=== PATIENT | male | born 1955 | race Caucasian/White ===

== ENCOUNTER → 2024-04-20 18:36 | Outpatient (REF) | payer OTHER, SELFPAY | LOC: MRI 3T 18:36 | PROVIDERS: ATTENDING PHYSICIAN Urology; FAMILY PHYSICIAN Family Medicine | DX: R97.20 Elevated prostate specific antigen [PSA] (principal); N40.2 Nodular prostate without lower urinary tract symptoms | CPT/HCPCS: 72197; A9575 ==

== ENCOUNTER 2024-09-13 07:18 | Outpatient (RCR) | payer OTHER, SELFPAY | END 2024-09-13 23:59 | disposition home or self-care (01) | LOC: RPT 07:18 | PROVIDERS: ATTENDING PHYSICIAN Urology; FAMILY PHYSICIAN Family Medicine | DX: C61 Malignant neoplasm of prostate (principal); Z73.6 Limitation of activities due to disability; M54.50 Low back pain, unspecified; R35.0 Frequency of micturition; R39.15 Urgency of urination | CPT/HCPCS: 97161; 97530 ==

== ENCOUNTER → 2024-10-04 07:05 | Outpatient (REF) | payer OTHER, SELFPAY ==
[2024-10-04] MEDS: LEXISCAN 0.4 MG IV (09:17)
== END ==
LOC: RCS 07:05
PROVIDERS: ATTENDING PHYSICIAN Internal Medicine Cardiovascular Disease; FAMILY PHYSICIAN Family Medicine
DX: Z01.810 Encounter for preprocedural cardiovascular examination (principal); I10 Essential (primary) hypertension; I44.7 Left bundle-branch block, unspecified
CPT/HCPCS: 78452; 93017; A9500; J2785

== ENCOUNTER 2024-10-07 06:44 | Day surgery (SDC) | payer OTHER, SELFPAY ==
[2024-09-27 14:17] VITALS: BMI 21.4
[2024-09-27 14:45] LABS: Mean Corp Hgb Conc. 33.3 g/dL (33.0-37.0); Mean Corpuscular Hgb 32.5 pg (27.0-31.0); Mean Corpuscular Volume 97.4 fL (80.0-94.0); Mean Platelet Volume 10.3 fL (7.4-10.4); Platelet Count 237 10^3/uL (130-400); Red Blood Cell Count 4.31 10^6/uL (4.70-6.10); White Blood Cell Count 7.8 10^3/uL (4.8-10.8)
[2024-09-27 14:55] LABS: Blood Urea Nitrogen 17 mg/dl (9-20); Calcium 9.3 mg/dl (8.4-10.2); Carbon Dioxide 31 mmol/L (22-30); Chloride 101 mmol/L (98-107); Estimated Creatinine Clearance 95 ml/min; Glucose 95 mg/dl (70-99); Potassium 4.8 mmol/L (3.5-5.1); Sodium 140 mmol/L (135-145); eGFR > 60.00
--- NOTE | 2024-09-27 15:07 | PTCARENOTE ---
Abn ECG, Dr. Murry notified. Cardiac clearance requested. Lorrie at Dr. Grande's office made aware of request for Cardiac Clearance.
[2024-10-07] VITALS (11 sets, daily range): BP systolic 127–148; BP diastolic 69–93; BMI 21.4; BMI 22.0
[2024-10-07] MEDS: NORMOSOL-R/PLASMALYTE-A 1000 IV (11:52)
[2024-10-07 17:56] LABS: Hematocrit 36.1 % (39.0-52.0); Hemoglobin 12.4 g/dL (13.0-18.0)
[2024-10-07] MEDS: TORADOL 15 MG IV ×2 (18:09→22:55)
[2024-10-07 18:11] LABS: Blood Urea Nitrogen 9 mg/dl (9-20); Calcium 7.9 mg/dl (8.4-10.2); Carbon Dioxide 22 mmol/L (22-30); Chloride 107 mmol/L (98-107); Estimated Creatinine Clearance 111 ml/min; Glucose 108 mg/dl (70-99); Potassium 4.3 mmol/L (3.5-5.1); Sodium 136 mmol/L (135-145); eGFR > 60.00
[2024-10-07] MEDS: LOVENOX 40 MG SC (18:14)
--- NOTE | 2024-10-07 18:53 | W.IMMPOSTOP ---
Surgical Immed Post Op Note
-
Primary Surgeon: Dimasfer
Assisting Surgeon: none
Pre-op Diagnosis: Prostate cancer
Post-op Diagnosis: same
Procedure Performed: Robotic prostatectomy
Anesthesia Type: general
Specimen / Cultures: prostate, lymph nodes
Estimated Blood Loss: 50cc
Complications: none
Operative Findings: none
--- NOTE | 2024-10-07 19:55 | PTCARENOTE ---
Pt arrive to [facility] at 1915 from PACU. Pt has 6 lap sites COLEEN with glue and a Rosenberg. Report received from RN, Teresa. Pt oriented to room and call pinedo. Bed locked and in lowest position. Full head to toe complete.
[2024-10-07] MEDS: NSS 1000 IV (20:54)
[2024-10-07] MEDS: SENOKOT 17.2 MG PO (20:54)
[2024-10-08] MEDS: PERCOCET 5/325 1 TABLET PO (02:37)
[2024-10-08 03:32] VITALS: BP 124/72
[2024-10-08] MEDS: TORADOL 15 MG IV ×3 (03:47→16:25)
[2024-10-08] MEDS: NSS 1000 IV (06:27)
[2024-10-08 08:00] VITALS: BP 113/67
[2024-10-08 08:12] LABS: Hematocrit 31.1 % (39.0-52.0); Hemoglobin 10.5 g/dL (13.0-18.0); Mean Corp Hgb Conc. 33.8 g/dL (33.0-37.0); Mean Corpuscular Hgb 32.6 pg (27.0-31.0); Mean Corpuscular Volume 96.6 fL (80.0-94.0); Mean Platelet Volume 10.7 fL (7.4-10.4); Platelet Count 184 10^3/uL (130-400); Red Blood Cell Count 3.22 10^6/uL (4.70-6.10); Red Cell Dist. Width 13.5 % (11.5-14.5); White Blood Cell Count 8.6 10^3/uL (4.8-10.8)
[2024-10-08 08:45] LABS: Blood Urea Nitrogen 14 mg/dl (9-20); Calcium 7.6 mg/dl (8.4-10.2); Carbon Dioxide 26 mmol/L (22-30); Chloride 107 mmol/L (98-107); Estimated Creatinine Clearance 95 ml/min; Glucose 87 mg/dl (70-99); Potassium 4.1 mmol/L (3.5-5.1); Sodium 137 mmol/L (135-145); eGFR > 60.00
[2024-10-08] MEDS: TENORMIN 50 MG PO (08:54)
[2024-10-08] MEDS: SENOKOT 17.2 MG PO (08:55)
[2024-10-08] MEDS: ZESTRIL 20 MG PO (08:55)
[2024-10-08 09:29] LABS: Hepatitis C Antibody Reactive (Negative)
--- NOTE | 2024-10-08 10:45 | CM ---
Met with pt at bedside
Pt reports he lives in an apartment with his nephew; 4 steps to enter, FF set-up
Independent, active, drives
DME - none
SNF/HH - denies past hx
Has ride at discharge
PCP - Maximo Bach
Pharm - [facility]
CM consult for VN/Rosenberg care
Discussed with pt - no preference
TT sent to [facility] Liaison for home care needs
Plan - home with [facility]
--- NOTE | 2024-10-08 11:15 | VNURNOTE ---
Home Health Liaison met with patient at bedside to discuss [facility] nurse/therapy, visits, schedule and homebound status. Patient is agreeable and understands that visits at home will be 2-3 x per week to assess and teach medical and carlin management.
[facility] brochure provided with contact information. Patient is aware that [facility] will contact them for start of care in 1-2 days after discharge from .
[facility] referral completed in [facility].
--- NOTE | 2024-10-08 11:26 | W.PN.URO.CBU ---
Today's Communication / Plan
-
H&H
Likely discharge
Assessment / Plan
-
69M with prostate cancer s/p RALP/PLND
- Mild anemia due to INF dilution vs post surgical bleeding - repeat H&H this afternoon
- Reg diet
- Ambulate
- Discharge this afternoon with carlin in place if HGB stable
Diagnosis
-
Date of Service: October 08, 2024
-
Patient Diagnosis:
Prostate cancer
Post Op Day: 1 s/p RALP/PLND
Subjective
-
pain controlled
tolerating diet
ambulated
Objective
-
Vital Signs
Temp Pulse Resp BP Pulse Ox
98.0 F 59 16 113/67 96
10/08/24 08:00 10/08/24 08:00 10/08/24 08:00 10/08/24 08:54 10/08/24 08:00
Intake and Output
10/07/24 10/08/24 10/09/24
06:59 06:59 06:59
Intake Total 2030 / 2030
Output Total 750 / 750
Balance 1280 / 1280
Intake:
Oral fluids 480 / 480
IV fluids (Total) 1550 / 1550
Normosal 300 / 300
IV piggybacks 0 / 0
Output:
Urine, Carlin 350 / 350
Urine, Voided 400 / 400
Laboratory Results
10/08/24 06:52
Physical Exam
-
General - well developed, well nourished, no acute distress
Chest - clear bilaterally
Abdomen - soft, non-tender
Carlin clear yellow
Skin - warm & dry with no rash
Neuro - AOx3, no motor deficits
Incision - clean, dry
Dressing - clean, dry, intact
[2024-10-08 12:12] VITALS: BP 109/58
[2024-10-08 14:31] LABS: Hematocrit 32.7 % (39.0-52.0); Hemoglobin 10.7 g/dL (13.0-18.0)
== END 2024-10-08 17:45 | disposition home or self-care (01) ==
LOC: SDS 06:44
PROVIDERS: ATTENDING PHYSICIAN Urology; FAMILY PHYSICIAN Family Medicine
DX: C61 Malignant neoplasm of prostate (principal); C77.5 Secondary and unspecified malignant neoplasm of intrapelvic lymph nodes
CPT/HCPCS: 55866; 38571; 88305; 88307; 88309; 36415; 80048; 85014; 85018; 85027; 86803; 86850; 86900; 86901; 93005

== ENCOUNTER 2024-11-19 10:57 | Outpatient (RCR) | payer OTHER, SELFPAY | END 2024-11-19 23:59 | disposition home or self-care (01) | LOC: RPT 10:57 | PROVIDERS: ATTENDING PHYSICIAN Urology; FAMILY PHYSICIAN Family Medicine | DX: C61 Malignant neoplasm of prostate (principal); Z73.6 Limitation of activities due to disability; M54.50 Low back pain, unspecified; Z98.890 Other specified postprocedural states; R35.0 Frequency of micturition; R39.15 Urgency of urination; Z90.79 Acquired absence of other genital organ(s) | CPT/HCPCS: 97164; 97530 ==

== ENCOUNTER 2024-12-24 11:04 | Outpatient (RCR) | payer OTHER, SELFPAY | END 2024-12-24 23:59 | disposition home or self-care (01) | LOC: RPT 11:04 | PROVIDERS: ATTENDING PHYSICIAN Urology; FAMILY PHYSICIAN Family Medicine | DX: C61 Malignant neoplasm of prostate (principal); Z73.6 Limitation of activities due to disability; M54.50 Low back pain, unspecified; M62.89 Other specified disorders of muscle; Z98.890 Other specified postprocedural states; M62.81 Muscle weakness (generalized); Z90.79 Acquired absence of other genital organ(s); R35.0 Frequency of micturition; R39.15 Urgency of urination | CPT/HCPCS: 97110; 97112 ==

== ENCOUNTER 2025-01-14 11:11 | Outpatient (RCR) | payer OTHER, SELFPAY | END 2025-01-14 23:59 | disposition home or self-care (01) | LOC: RPT 11:11 | PROVIDERS: ATTENDING PHYSICIAN Urology; FAMILY PHYSICIAN Family Medicine | DX: C61 Malignant neoplasm of prostate (principal); Z73.6 Limitation of activities due to disability; M54.50 Low back pain, unspecified; M62.89 Other specified disorders of muscle; M62.81 Muscle weakness (generalized); R35.0 Frequency of micturition; Z98.890 Other specified postprocedural states; Z90.79 Acquired absence of other genital organ(s); R39.15 Urgency of urination | CPT/HCPCS: 97110; 97112; 97530 ==

== ENCOUNTER 2025-02-11 11:09 | Outpatient (RCR) | payer OTHER, SELFPAY | END 2025-02-11 23:59 | disposition home or self-care (01) | LOC: RPT 11:09 | PROVIDERS: ATTENDING PHYSICIAN Urology; FAMILY PHYSICIAN Family Medicine | DX: C61 Malignant neoplasm of prostate (principal); Z73.6 Limitation of activities due to disability; M54.50 Low back pain, unspecified; M62.89 Other specified disorders of muscle; M62.81 Muscle weakness (generalized); Z90.79 Acquired absence of other genital organ(s); Z98.890 Other specified postprocedural states; R35.0 Frequency of micturition; R39.15 Urgency of urination | CPT/HCPCS: 97110; 97112 ==

== ENCOUNTER 2025-03-11 12:55 | Outpatient (RCR) | payer OTHER, SELFPAY | END 2025-03-11 23:59 | disposition home or self-care (01) | LOC: RPT 12:55 | PROVIDERS: ATTENDING PHYSICIAN Urology; FAMILY PHYSICIAN Family Medicine | DX: C61 Malignant neoplasm of prostate (principal); Z73.6 Limitation of activities due to disability; M54.50 Low back pain, unspecified; M62.89 Other specified disorders of muscle; M62.81 Muscle weakness (generalized); Z98.890 Other specified postprocedural states; R35.0 Frequency of micturition; Z90.79 Acquired absence of other genital organ(s); R39.15 Urgency of urination | CPT/HCPCS: 97110; 97112 ==

== ENCOUNTER 2025-04-22 10:00 | Outpatient (RCR) | payer OTHER, SELFPAY | END 2025-04-22 23:59 | disposition home or self-care (01) | LOC: RPT 10:00 | PROVIDERS: ATTENDING PHYSICIAN Urology; FAMILY PHYSICIAN Family Medicine | DX: C61 Malignant neoplasm of prostate (principal); Z73.6 Limitation of activities due to disability; M54.50 Low back pain, unspecified; M62.89 Other specified disorders of muscle; M62.81 Muscle weakness (generalized); R35.0 Frequency of micturition; R39.15 Urgency of urination; Z90.79 Acquired absence of other genital organ(s); Z98.890 Other specified postprocedural states | CPT/HCPCS: 97110; 97112; 97530 ==

== ENCOUNTER → 2025-05-20 16:39 | Outpatient (REF) | payer OTHER, MEDICAID, SELFPAY | LOC: MRI 3T 16:39 | PROVIDERS: ATTENDING PHYSICIAN Radiology Radiation Oncology; FAMILY PHYSICIAN Family Medicine | DX: R97.20 Elevated prostate specific antigen [PSA] (principal); C61 Malignant neoplasm of prostate | CPT/HCPCS: 72197; A9575 ==

== ENCOUNTER 2025-07-21 18:12 | Inpatient (IN) | payer OTHER, SELFPAY ==
[2025-07-21] VITALS (55 sets, daily range): BP systolic 83–157; BP diastolic 45–83; PULSE 38–46; BMI 21.3; BMI 20.2
--- NOTE | 2025-07-21 13:49 | ED.GENMED ---
History of Present Illness
General
Chief Complaint: Weakness
Time Seen by Provider: 07/21/25 13:40
History of Present Illness
History of Present Illness:
Patient presents to the emergency department with altered mental status. The history is not entirely clear however patient was noted to be weak today generally. Patient is falling asleep while he is talking and is able to provide some limited
history. He denies any pain at this time. States he is feeling okay.
Phy Exam
Physical Exam
Physical Exam:
GENERAL APPEARANCE: Cute distress, patient with poor attention, tired appearing, falling asleep during interview
EYES lids/conjunctiva normal, pupils midsize and equal, reactive to light and accommodation
EARS/NOSE/THROAT Mucous membranes moist, uvula midline without oral pharyngeal erythema, exudate or swelling
HEAD/NECK normocephalic atraumatic, neck is supple.
RESPIRATORY respiratory effort normal, speaks in full sentences, no accessory muscle use. Lungs clear to auscultation without rhonchi, wheezes, rales
CARDIAC Regular rate and rhythm, no edema.
ABDOMINAL Soft, ND/NT. No pulsatile masses on exam, rebound tenderness, Herring sign or pain over Mcburney's point.
MUSCLES/EXTREMITIES No abnormal range of motion, no swelling.
SKIN Warm, pink and dry. No rashes
NEUROLOGICAL patient is oriented x 3, speech is clear and appropriate. Decreased level of consciousness. Poor attention. Cranial nerves II through XII intact. No dysmetria. No nystagmus. Sensation intact to light touch throughout. 02/28
strength in all extremities.
Course
Orders/Labs/Results
Orders:
Orders
07/21/25
Electrocardiogram (*1) Stat
Comment: DONE
Electrocardiogram (*1) Stat
Comment: DONE EMR
07/21/25 13:47
CT Head W/o Iv Contrast Urgent
Comment:
Reason For Exam: altered mental status
07/21/25 13:48
CR Chest - 2 Views Urgent
Comment:
Reason For Exam: altered mental status
07/21/25 13:52
0.9% Sodium Chloride 1000 ml [Nss] 1,000 ml IV BOLUS
07/21/25 14:02
Alcohol Urgent
Basic Metabolic Panel Urgent
Complete Blood Count/With Diff Urgent
Free T4 Urgent
Comment: ADD ON
Lactate Level [Lactic Acid] Urgent
TSH Urgent
Comment: ADD ON
Troponin I Urgent
Venous Blood Gas Urgent
%Oxygen/Room Air: room air
07/21/25 14:20
Blood Culture Q30M
BLANCA Source: Blood/Venous
Specimen Description:
07/21/25 14:21
Naloxone [Narcan] 0.4 mg IV NOW STA
07/21/25 14:22
Naloxone [Narcan] 0.4 mg .ROUTE .STK-MED ONE
07/21/25 14:29
Add On- LAB Urgent
Tests Added?: TSH
Add On- LAB Urgent
Tests Added?: tsh, free t4
07/21/25 14:30
Blood Culture Q30M
BLANCA Source: Blood/Venous
Specimen Description:
07/21/25 15:06
Atropine Sulfate [Atropine 0.1 mg/ml Syringe] 1 mg .ROUTE .STK-MED ONE
07/21/25 15:07
Atropine Sulfate [Atropine 0.1 mg/ml Syringe] 0.5 mg IV NOW STA
07/21/25 15:26
Urinalysis Reflex To Culture Urgent
Date Specimen was Collected: 07/21/25
Time Specimen was Collected: 15:18
Urine Drug Abuse Screen Urgent
Date Specimen was Collected: 07/21/25
Time Specimen was Collected: 15:18
Urine Microscopic Reflex Cult Urgent
07/21/25 15:29
0.9% Sodium Chloride 1000 ml [Nss] 1,000 ml IV BOLUS
07/21/25 15:54
NORepinephrine 4 MG/250 ML [Levophed] 4 mg in 250 ml .ROUTE .STK-MED
07/21/25 16:00
NORepinephrine 4 MG/250 ML [Levophed] 4 mg in 250 ml IV PER PROTOCOL
Initial dose in mcg/min, then titrate:: 2
Titrate to keep:: MAP > 65 mmHg
Titrate by mcg/min:: 1-2 mcg/min
Frequency of titrations (minutes):: 5
Maximum dose in ICU in mcg/min:: 30
Maximum dose in IMU in mcg/min:: 8
Maximum dose in IVU in mcg/min:: 4
Begin to taper infusion when:: Remained at goal for 4hrs
Taper by mcg/min:: 1-2 mcg/min
Frequency of taper (minutes) if patient maintains goal:: 30
Taper to off?: Yes
If infusion off & no longer maintaining goal:: Contact Provider
07/21/25 16:09
Atropine Sulfate [Atropine 0.1 mg/ml Syringe] 0.5 mg IV NOW STA
07/21/25 16:58
COVID-19 Antigen Urgent
Source: Nasal Swab
07/21/25 17:43
Procalcitonin Urgent
If negative, will antibiotics be d/c'd or not started: Yes
Does the patient have renal or hepatic impairment?: No
Any recent (w/in 48 hrs) physiologic stress (CPR, rhabdo): No
07/21/25 17:45
DOPamine 400 MG/D5W 250 ML [DOPamine 400 MG] 400 mg in 250 ml IV PER PROTOCOL
Initial dose in mcg/kg/min, then titrate:: 2
Titrate to keep:: Heart Rate
Keep Heart Rate (bpm) greater than:: 50
Titrate by mcg/kg/min:: 1-2 mcg/kg/min
Frequency of titrations (minutes):: 15
Maximum dose in ICU in mcg/kg/min:: 20
Maximum dose in IMU in mcg/kg/min:: 10
Begin to taper infusion when:: Remained at goal for 4hrs
Taper by mcg/kg/min:: 1-2 mcg/kg/min
Frequency of taper (minutes) if patient maintains goal:: 30
Taper to off?: Yes
If infusion off & no longer maintaining goal:: Contact Provider
07/21/25 17:50
INR [Prothrombin Time] Urgent
Influenza A+B Rapid Molecular Urgent
BLANCA Source: Nasal Swab
Specimen Description:
07/21/25 17:54
Admit/Transfer Patient As Directed
Co-Sign Provider:
Level of Care: Inpatient admission
Assign to:: ICU
Physician / Group: Paulette Betancur
Diagnosis: bradycardia, hypotension, somnolence
Reason for Hospitalization: bradycardia, hypotension, somnolence
Expected length of stay greater than two midnights?: Yes
ELOS- Estimated Length of Stay in days: 3
I certify the patient meets the requirements for IP care: Yes
PRN Pain Medication Management As Directed
May give lesser potent ordered pain med per pt: Yes
preference::
Protocol:: Medication orders for pain may be administered in a
manner that supports deferring to patient preference
when the pt is:
- Requesting an ordered lesser potent pain medication.
Least to most potent pain medications are defined
as: acetaminophen < NSAID < tramadol < opioids
(morphine, oxycodone, hydromorphone).
- Requesting a lesser dose of the same medication IF
ORDERED.
- Requesting a less intrusive route of administration
if both routes are prescribed by the provider (PO <
IV).
07/21/25 17:55
Code Status As Directed
Resuscitation Status: Full Code
07/21/25 18:08
Add On- LAB Routine
Tests Added?: vitamin B12
07/21/25 18:15
Thiamine Injection 500 mg 0.9% Sodium Chloride 250 ml [Nss] 250 ml IV Q8
Abnormal Lab Results
07/21/25 07/21/25
14:02 15:26
RBC 3.34 L 10^6/uL
(4.70-6.10)
Hgb 10.4 L g/dL
(13.0-18.0)
Hct 30.7 L %
(39.0-52.0)
MCH 31.1 H pg
(27.0-31.0)
Abs Immat Gran (auto) 0.1 H 10^3/uL
(0-0.05)
Absolute Neuts (auto) 6.8 H 10^3/uL
(1.4-6.5)
Absolute Lymphs (auto) 0.6 L 10^3/uL
(1.2-3.4)
Absolute Monos (auto) 0.7 H 10^3/uL
(0.1-0.6)
Immature Gran % 1.0 H %
(0-0.5)
Neutrophils % 83.3 H %
(42.2-75.2)
Lymphocytes % 7.1 L %
(20.5-51.1)
VBG pO2 200 H mmHg
(30-50)
BUN 21 H mg/dl
(9-20)
Creatinine 0.6 L mg/dL
(0.7-1.3)
Glucose 128 H mg/dl
(70-99)
Urine Albumin (Reflex) 1+ A
(Neg - Trace)
U Marijuana (THC) Screen Positive H
(Negative)
07/21/25 14:02
07/21/25 14:02
Vital Signs
Initial and Last Documented VS:
Initial Vital Signs
Temp Pulse Resp BP Pulse Ox
98.9 F 54 28 126/69 97
07/21/25 13:33 07/21/25 13:33 07/21/25 13:33 07/21/25 13:33 07/21/25 13:33
Last Documented Vital Signs
Temp Pulse Resp BP Pulse Ox
98.9 F 50 14 109/56 97
07/21/25 13:33 07/21/25 18:15 07/21/25 18:15 07/21/25 18:15 07/21/25 18:04
*Pulse Oximetry
SaO2: 96
Oxygen Mode of Delivery: Room air
Patient hypoxic: no
*Critical Care Note
Total Time (30-74mins, 75-104mins- exclusive of procedures): 35 minutes
comment:
35 minutes
ED Attending Note
ED Attending Note
ED Attending Note:
Patient's sister (roommate), and nephew arrived to the emergency department. They note that he does take various herbal supplements and [id number] drugs from head shops.
Patient presents with depressed mental status, sinus bradycardia, hypotension. Non focal neurologic exam to suggest CVA. EKG with chronic LBBB with bradycardia into the 30s-40s. Patient is arousable and oriented. Denies any symptoms other than
fatigue, but continues to fall asleep. Differential broad including primary cardiac vs endocrine vs tox. Given narcan without response. Given atropine with mild response. BP not responsive to IVF. Starting norepinephrine given low MAP.
-
Portions of this chart may have been created with voice recognition software.� Occasional wrong word or��sound alike� substitutions may have occurred due to the inherent limitations of voice recognition software.
Discharge Plan
Departure
Patient Disposition: Admit
Date of Disposition: 07/21/25
Time of Disposition: 16:08
Presentation/result/management discussed w/ accepting MD/DO: Hospitalist
Discharge Problem:
Shock, Bradycardia, severe sinus
Interventions
Interventions:
*General Assessment Last Done: 07/21/25 13:43
*Neglect/Abuse Screening Last Done: 07/21/25 13:43
*ED- Fall Risk Assessment Last Done: 07/21/25 13:43
ED- Cardiac Assessment Last Done: 07/21/25 13:38
ED- Neurological Assessment Last Done: 07/21/25 13:38
ED- Pulmonary Assessment Last Done: 07/21/25 13:38
[2025-07-21] MEDS: NSS 1000 IV ×3 (13:50→18:46)
[2025-07-21 14:18] LABS: Venous Blood Gas B.E. 0 mmol/L (-4 to +4); Venous Blood Gas O2 Sat % 99.7 %
[2025-07-21] MEDS: NARCAN 0.4 MG IV (14:25)
[2025-07-21 14:28] LABS: Hematocrit 30.7 % (39.0-52.0); Hemoglobin 10.4 g/dL (13.0-18.0); Mean Corp Hgb Conc. 33.9 g/dL (33.0-37.0); Mean Corpuscular Volume 91.9 fL (80.0-94.0); Nucleated Red Blood Cells % 0 % (-); Platelet Count 325 10^3/uL (130-400); Red Cell Dist. Width 13.3 % (11.5-14.5)
[2025-07-21 14:31] LABS: Blood Urea Nitrogen 21 mg/dl (9-20); Calcium 8.7 mg/dl (8.4-10.2); Carbon Dioxide 25 mmol/L (22-30); Chloride 106 mmol/L (98-107); Estimated Creatinine Clearance 106 ml/min; Glucose 128 mg/dl (70-99); Potassium 4.5 mmol/L (3.5-5.1); Sodium 135 mmol/L (135-145); eGFR > 60.00
[2025-07-21 14:43] LABS: Troponin I < 0.012 ng/ml
[2025-07-21] MEDS: ATROPINE 0.1 MG/ML SYRINGE 0.5 MG IV ×2 (15:07→16:11)
[2025-07-21 15:33] LABS: TSH 0.63 uIU/ml (0.47-4.68)
[2025-07-21 15:41] LABS: Urine Character Clear (Clear)
[2025-07-21] MEDS: LEVOPHED 250 IV (15:57)
--- NOTE | 2025-07-21 16:24 | CON.CAR ---
Addendum entered and electronically signed by Frankie Chester MD 07/21/25 17:35:
I saw and examined the patient.
The Charge Aide's note was reviewed and I agree with the note.
Comment: Briefly, 70-year-old man with past medical history of prostate cancer status post prostatectomy on radiation, chronic left bundle branch block and hypertension who was brought in to ER for evaluation of altered mental status. Cardiology
is consulted for bradycardia and hypotension.
History was largely obtained by his sister who was at bedside
She tells me that she found the patient 'passed out on the steps' of their home. Patient was reportedly 'incoherent' and 'stumbling.'
He was brought in to ER where he was found to be in sinus bradycardia with heart rates in the 30s and 40s and hypotensive. He was treated with atropine with some improvement in the heart rate but he remained hypotensive and Levophed was started.
Lethargic/somnolent at the time of my evaluation. But warm and well-perfused on physical exam.
Possible that his presentation is related to an underlying infection which has not yet been identified or ingestion as sister tells me he takes many supplements and OTC medications
My review of telemetry shows no significant pauses or high-grade AV block and therefore I do not see a clear indication for permanent pacemaker at this time
Would continue Levophed to target a MAP goal greater than 65 mmHg
Avoid AV lexi blockers�patient is on atenolol as an outpatient
Continue to monitor on telemetry and keep transcutaneous pacemaker pads in place
Discussed with patient's sister and nursing at bedside
Original Note:
Consultation
Consultation Request
Date/Time Consultation Performed: 07/21/25
Requesting Provider: Dr. Saab in the ER
Performing Provider: Cassidy Billings PA-C for Dr. Chester
Reason for Consultation: bradycardia, hypotension
Medical History
-
Chief Complaint: altered mental status
History of Present Illness:
Patient is a 70 yo M with PMH of chronic LBBB, HTN, prostate cancer s/p radical prostatectomy who presented to [facility] ER due to change in mental status. Noted to be weak and lethargic. Was bradycardic and hypotensive in ER resulting in cardiology
consultation. Trop negative. Head CT without acute abnormality. Patient's family sitting at the bedside and reports that following successful prostatectomy patient had an increase in his PSA level leading to the initiation of radiation therapy.
Radiation therapy has been Friday through Friday for the last 2 weeks and the patient has been more fatigued, but then the last 2 days the patient was so tired that he did not eat with his family like usual after coming home from work. 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 He is usually not done work until 1030 or 11:00 at night, but will still come home and eat a meal with his sister and then wake up in the morning time, but last night he did not want to eat with
family and today he was not up by noon time so the family checked on him and they could not wake him up although he appeared to be breathing on his own. Family called 911 and patient was brought to [facility] ER. Family reports the patient drinks a 12
pack a day and then also has shots of hard liquor. They do not suspect any illicit drug use. They report patient has lost weight. They said that overall the patient is generally fairly private and so they do not know much about his medical care
aside from the recent radiation therapy. Patient is chronically on atenolol 50 mg daily, but he manages all of his medications on his own. Family thinks that the patient had an MS treated at [facility] perhaps 20 years ago, but they
do not have any further details and patient completed Lexiscan nuclear stress test prior to his prostatectomy in September and at that time there is a medium size defect of decreased perfusion in the inferior/inferoseptal segment that was mildly
reversible but then normalized on prone imaging suggesting inferior soft tissue attenuation. The patient has not complained of any chest pain, SOB or palpitations recently.
PMH:
History of HTN
chronic LBBB
Prostate cancer s/p radical prostatectomy 2023
Possible remote MS in 2004
Past Medical History
Past Medical History: Other (in HPI)
Past Surgical History: Urological (Radical prostatectomy 09/2024)
Social History
Tobacco: Non-Smoker
Alcohol: Chronic Alcoholic (12 beers a day plus shots of hard liquor)
Drug: Marijuana
Personal: Single
Living: With Family
Employment: Retired
Family History
Family History: CAD, Cancer (prostate) and Hypertension
Allergies / Home Medications
Allergy/AdvReac Type Severity Reaction Status Date / Time
No Known Allergies Allergy Unverified 10/07/24 11:13
�Medication �Instructions �Recorded �Confirmed �Type
atenolol 50 mg tablet 50 mg PO DAILY 10/06/24 07/21/25 History
cholecalciferol (vitamin D3) 25 25 mcg PO DAILY ##0 10/06/24 07/21/25 History
mcg (1,000 unit) tablet (Vitamin
D3)
garlic 300 mg capsule 300 mg PO DAILY ##0 10/06/24 07/21/25 History
lisinopril 20 mg tablet 20 mg PO DAILY 10/06/24 07/21/25 History
vitamin E 268 mg (400 unit) capsule 268 mg PO DAILY ##0 10/06/24 07/21/25 History
mirabegron 25 mg tablet,extended 25 mg PO DAILY 07/21/25 07/21/25 History
release 24 hr (Myrbetriq)
Review of Systems
-
History Source: Patient and Family (Sister and nephew contributing to HPI)
All other systems: Negative unless noted
Physical Exam
Vital Signs
Temp Pulse Resp BP Pulse Ox
98.9 F 66 17 140/75 78
07/21/25 13:33 07/21/25 16:20 07/21/25 16:20 07/21/25 16:20 07/21/25 16:20
GEN: NAD. Somnolent
HEENT: MMM
LUNGS: RA. Clear anterolaterally
CV: Sinus bradycardia. Reg, S1/S2, no murmur
ABD: soft, BS+
EXT: No edema B/L LE
NEURO: Gross non-focal
SKIN: No rash
Lab Results
07/21/25 14:02
07/21/25 14:02
Troponin I < 0.012 ng/ml 07/21/25 14:02
Impression / Plan
-
Primary Sketch Liner: Dr. Ac
Assessment:
Presentation with change in mental status
Hypotension
Sinus bradycardia
Anemia
History of HTN
chronic LBBB
Prostate cancer s/p radical prostatectomy 2023
Possible remote MS in 2004
ECHO 07/22/25: pending
Plan:
-Patient is a 70 yo M with PMH of chronic LBBB, HTN, prostate cancer s/p radical prostatectomy who presented to [facility] ER due to change in mental status. Noted to be weak and lethargic. Was bradycardic and hypotensive in ER resulting in cardiology
consultation. Trop negative. Head CT without acute abnormality. Patient's family sitting at the bedside and reports that following successful prostatectomy patient had an increase in his PSA level leading to the initiation of radiation therapy.
Radiation therapy has been Friday through Friday for the last 2 weeks and the patient has been more fatigued, but then the last 2 days the patient was so tired that he did not eat with his family like usual after coming home from work. 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 He is usually not done work until 1030 or 11:00 at night, but will still come home and eat a meal with his sister and then wake up in the morning time, but last night he did not want to eat with
family and today he was not up by noon time so the family checked on him and they could not wake him up although he appeared to be breathing on his own. Family called 911 and patient was brought to [facility] ER. Family reports the patient drinks a 12
pack a day and then also has shots of hard liquor. They do not suspect any illicit drug use. They report patient has lost weight. They said that overall the patient is generally fairly private and so they do not know much about his medical care
aside from the recent radiation therapy. Patient is chronically on atenolol 50 mg daily, but he manages all of his medications on his own. Family thinks that the patient had an MS treated at [facility] perhaps 20 years ago, but they
do not have any further details and patient completed Lexiscan nuclear stress test prior to his prostatectomy in September and at that time there is a medium size defect of decreased perfusion in the inferior/inferoseptal segment that was mildly
reversible but then normalized on prone imaging suggesting inferior soft tissue attenuation. The patient has not complained of any chest pain, SOB or palpitations recently.
-ECG reviewed by me is sinus bradycardia with occasional PAC and known LBBB.
-Patient with change in mental status, last seen well at about 11 PM on 07/20/2025. Workup thus far is unremarkable.
-Cardiology consulted for sinus bradycardia, patient was given a dose of atropine in the ER and is now on Levophed running at 1 mcg/min and BP has improved to 94/49 with a heart rate of 52.
-Plan will be for supportive care while underlying diagnosis is formulated. There is no indication for PPM.
-Agree with holding atenolol
-Agree with plan for echo. EF was preserved on stress test 10/04/2024.
Data Reviewed
-
EKG: Tracing Personally Visualized and interpreted
CT Scan: Report Reviewed by me
Medical Tests (Nuc Med, Echo etc): Report Reviewed by me
Labs: Labs Reviewed by me
Old Records: Reviewed
--- NOTE | 2025-07-21 16:31 | HPS.HSE ---
Addendum entered and electronically signed by Paulette Betancur MD 07/21/25 23:30:
with drinking history, high dose IV thiamine ordered
start MSAS protocol when patient more awake
Addendum entered and electronically signed by Paulette Betancur MD 07/21/25 18:17:
confirmed code status with nephew, full code
nephew states patient takes many different vitamins, and synthetic compounds which are legal but unregulated. HE denied knowing he takes THC.
Original Note:
Family Physician
-
Family Physician: NOT KNOW UNKNOWN - PT DOES
Chief Complaint
-
altered mental status
History of Present Illness
Mr. Keven Lopez is a 70 yo man with hx essential HTN, LBBB, prostate CA s/p prostatectomy undergoing radiation therapy, brought to the ER for weakness and drowsiness.
Patient unable to provide history and I tried calling family in chart, no answer. Patient was found passed out at home, unable to be woken up. He drinks a 12 pack a day and has shots of liquor. He smokes marijuana, no other known illicit drug
use. Per family, he takes many different supplements and herbs from headshops.
Medical History
Past Medical History
Past Medical History: Reports Other (essential HTN, LBBB, prostate CA)
Past Surgical History: Reports Other
Social History
Alcohol: Daily
Family History
Family History: Not pertinent
Allergies / Home Medications
Allergies reflects when Allergies were last updated in [facility].
Home Medications with original date entered in [facility]
Allergy/Medication List:
Allergies
Allergy/AdvReac Type Severity Reaction Status Date / Time
No Known Allergies Allergy Unverified 10/07/24 11:13
Home Medications
atenolol 50 mg tablet 50 mg PO DAILY 10/06/24
cholecalciferol (vitamin D3) 25 mcg (1,000 unit) tablet (Vitamin D3) 25 mcg PO DAILY ##0 12/11/24
garlic 300 mg capsule 300 mg PO DAILY ##0 10/06/24
lisinopril 20 mg tablet 20 mg PO DAILY 10/06/24
vitamin E 268 mg (400 unit) capsule 268 mg PO DAILY ##0 10/06/24
mirabegron 25 mg tablet,extended release 24 hr (Myrbetriq) 25 mg PO DAILY 07/21/25
Review of Systems
-
History Source: Patient
A 12 point ROS was completed and negative except as noted: Yes
Physical Exam
Vital Signs
Vital Signs
Temp Pulse Resp BP Pulse Ox
98.9 F 66 17 140/75 78
07/21/25 13:33 07/21/25 16:20 07/21/25 16:20 07/21/25 16:20 07/21/25 16:20
Physical Exam
General: Other (in no acute distress, lethargic, grimaces when try to open eye lids, mumbles words and does not stay awake )
HEENT: PERRLA
Respiratory: Clear; No Wheezes
Cardiac: S1/S2 and Regular Rhythm
GI: Soft and Non Tender
Musculoskeletal: No Edema
Skin: Warm and Dry; No Rash
Neuro: Sedated
Psych: Calm
Laboratory Results
-
07/21/25 14:02
07/21/25 14:02
Laboratory Results
Lactic Acid 0.7 mmol/L (0.7-2.0) 07/21/25 14:02
Troponin I < 0.012 ng/ml 07/21/25 14:02
Data Reviewed
-
Diagnostic Radiology: Report Reviewed by me
Lab Data: Labs Reviewed by me
Impression/Plan
-
Mr. Keven Lopez is a 70 yo man with hx essential HTN, LBBB, prostate CA, CAD s/p PCI brought to the ER for somnolence. He was found to be hypotensive and bradycardic in the ER. Concern for intoxication.
Triage VS: T 98.9, P 54 down to 40's, RR 28, BP 126/69 with drop in BP to 80's/40's, SpO2 97%
LABS: WBC 8.2, Hg 10.4, PLT 325, Na 135, K+ 4.5, BUN 21, Cr 0.6, Glucose 128, Lactate 0.7, Trop negative, TSH 0.63
EKG: sinus bradycardia @ 56, PVC's, nonspecific T wave changes
UDS positive for THC
HEAD CT
IMPRESSION:
No acute intracranial abnormality noted.
CXR
IMPRESSION:
No acute disease of the chest.
Mild cardiomegaly. Stable
Altered Mental Status
Shock
Bradycardia
-s/p 2L NS without improvement, given atropine 0.5mg x 1 with brief response in HR to 50's then down, started on Levophed. Patient's SBP is now 90's but HR dropping to 30's, therefore will switch to IV Dopamine (discussed with Cardiology)
-patient was unresponsive to Narcan in the ER. Covid negative, will check Influenza and procalcitonin although with history of visiting headshops/taking herbal supplements may be intoxication/ possible THC overdose?
-admit to ICU
-continue IV Dopamine
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
-appreciate Cardiology consult
-Commercial Appraiser consult
Essential HTN
-hold MARINE CHRONOMETER ASSEMBLER Atenolol and Lisinopril
Hx Prostate CA
DVT PPx Lovenox subQ
FULL CODE (unable to reach family to discuss code status)
Total Critical Care Time 60 minutes. I was immediately available to the patient and staff. I personally examined, reviewed labs, diagnostic images/reports, interpretations, treatment plans, discussed patient care with other providers and family
or caregivers (if patient is unable to make decisions), entered orders as appropriate and documented the medical record.
[2025-07-21 16:45] LABS: Urine Red Blood Cell 0-2 /HPF (0-2)
[2025-07-21 17:24] LABS: COVID-19 Antigen Negative (Negative)
[2025-07-21] MEDS: DOPamine 400 MG 250 IV (17:50)
[2025-07-21 18:50] LABS: Glucose - Point of Care 96 mg/dl (70-99)
--- NOTE | 2025-07-21 19:05 | PTCARENOTE ---
Addendum entered by Olamide Velasco RN 07/21/25 19:23:
pacing pads applied to patient
Original Note:
patient received from ED. assessments per work list. patient very drowsy but arousable. generalized weakness. poor historian. oriented to person and place. denies ETOH usage. monitor bradycardic, bbb, pvc. dopamine titration for heart rate 40's. no
skin breakdown. abdomen soft. voided small amount clear urine, condom cath applied. bed alarm activated for patient safety. call pinedo in reach. report to oncoming RN
[2025-07-21 19:14] LABS: ALT (SGPT) 27 U/L (0-50); AST (SGOT) 27 U/L (17-59); Albumin 3.4 g/dl (3.5-5.0); Alkaline Phosphatase 52 U/L (38-126); Magnesium 2.0 mg/dl (1.6-2.3); Total Protein 6.9 g/dl (6.3-8.2)
[2025-07-21 19:28] LABS: Acetaminophen < 10 ug/ml (10-30); Salicylate < 1.0 mg/dl (2.0-20.0)
[2025-07-21] MEDS: THIAMINE INJECTION 255 MG IV ×2 (19:47→22:53)
[2025-07-21 19:50] LABS: Vitamin B12 449 pg/ml (239-931)
[2025-07-21] MEDS: LOVENOX 40 MG SC (19:50)
[2025-07-21 19:58] LABS: Ammonia < 9 umol/L (9-30); INR 0.97; PT 13.4 Sec (11.4-14.6)
[2025-07-21 19:59] LABS: APTT 37.3 Sec (23.4-35.0)
[2025-07-21 20:00] LABS: Acetaminophen < 10 ug/ml (10-30); Salicylate < 1.0 mg/dl (2.0-20.0)
--- NOTE | 2025-07-21 20:15 | PTCARENOTE ---
rec'd pt at shift change as ER admit. pt drowsy but arousable to voice, pupils 5mm sluggish/equal, oriented x3, disoriented to time, KILLIAN, slow speech. SB on monitor, dopamine gtt infusing w/ HR goal >50. BBB and PVCs noted on monitor. BP stable. on
1L NC, ETCO2 connected. pt NPO. CC in place. maintenance IVF continue. labs sent. call pinedo in reach.
[2025-07-21 20:16] LABS: Procalcitonin < 0.05 ng/ml (0.0-0.25)
--- NOTE | 2025-07-21 21:36 | PTCARENOTE ---
dopamine gtt currently at 8mcg/kg/min, HR 40s, SBP now 140-150s. increase in ectopy noted on monitor (PVCs). ICU GREENHOUSE TECHNICIAN made aware, HR goal changed to >40. pt neuro status unchanged from initial assessment. care continues.
[2025-07-21] MEDS: ADRENALIN 250 IV (22:54)
--- NOTE | 2025-07-21 23:07 | PTCARENOTE ---
HR still remains in low 40s, lowest 38, ICU REVISING CLERK aware, epi gtt added with intention to wean down dopamine gtt. calcium to be repleted. care ongoing
[2025-07-21] MEDS: CALCIUM GLUCONATE 130 MG IV (23:11)
[2025-07-22] VITALS (69 sets, daily range): BP systolic 82–147; BP diastolic 36–68; PULSE 39–65; BMI 20.3
--- NOTE | 2025-07-22 04:01 | PTCARENOTE ---
dopamine gtt off, epi gtt continues. AM labs sent. HR currently 50-60s, less ectopy noted. call pinedo in reach.
[2025-07-22 04:17] LABS: Hematocrit 29.8 % (39.0-52.0); Hemoglobin 10.1 g/dL (13.0-18.0); Mean Corp Hgb Conc. 33.9 g/dL (33.0-37.0); Mean Corpuscular Volume 93.1 fL (80.0-94.0); Nucleated Red Blood Cells % 0 % (-); Platelet Count 365 10^3/uL (130-400); Red Cell Dist. Width 13.4 % (11.5-14.5)
[2025-07-22 04:47] LABS: Blood Urea Nitrogen 14 mg/dl (9-20); Calcium 8.9 mg/dl (8.4-10.2); Carbon Dioxide 21 mmol/L (22-30); Chloride 112 mmol/L (98-107); Estimated Creatinine Clearance 100 ml/min; Glucose 177 mg/dl (70-99); Magnesium 2.0 mg/dl (1.6-2.3); Potassium 3.9 mmol/L (3.5-5.1); Sodium 140 mmol/L (135-145); eGFR > 60.00
[2025-07-22] MEDS: THIAMINE INJECTION 255 MG IV ×3 (08:02→23:45)
[2025-07-22] MEDS: NSS 1000 IV (08:02)
--- NOTE | 2025-07-22 08:30 | PTCARENOTE ---
pt received from previous rn- pt drowsy, aox3 disoriented to time and forgetful. pt sr with pvcs and bbb on monitor with 1st degree, pt continues on epi gtt. pt on room air. denies any complaints at this time. pt educated on plan of care, verbalized
understanding. pt turns and repositions self. all safety precautions in place, call pinedo within reach.
--- NOTE | 2025-07-22 09:12 | W.PN.HOSP.TC ---
Today's Communication/Plan
-
see bold
Assessment / Plan
Assessment / Plan
HPI: 70 yo man with hx essential HTN, LBBB, prostate CA, CAD s/p PCI brought to the ER for somnolence. He was found to be hypotensive and bradycardic in the ER. Concern for intoxication.
#Shock
#Bradycardia
S/p 2L NS without improvement, given atropine 0.5mg x 1 with brief response in HR to 50's then down,
Levophed switched to dopamine secondary to bradycardia, now on IV epinephrine
Appreciate salary and wage administrator and cardiology input, continue epinephrine, wean as tolerated
Cardiology does not feel that the patient needs a pacemaker
Echo:
1. Normal left ventricular size, wall thickness and systolic function. No regional wall motion abnormalities are seen.
2. Right ventricular size and systolic function are within normal limits.
3. Mild aortic stenosis. Peak gradient 21mmHg/Mean gradient 14mmHg.
4. Mild tricuspid regurgitation. Estimated pulmonary artery pressure of 40 mmHg assuming a right atrial pressure of 3 mmHg.
5. No prior study for comparison.
#Altered Mental Status
Head CT neg
Suspect secondary to THC consumption, resolved
#Essential HTN
Hold HIV COUNSELOR Atenolol and Lisinopril
#Hx Prostate CA
Receiving radiation outpatient
DVT prophylaxis�subcu Lovenox
Full code
Total time spent to see the patient on the floor, examine the patient, review data and lab results, discuss treatment plan with patient, nursing staff around 45 minutes.
Physical Exam
General: No acute distress
HEENT: Normocephalic, Atraumatic, EOMI, MMM
Respiratory: Clear to Auscultation bilaterally
Cardiac: Normal S1/S2, Regular Rate and Rhythm
GI: Soft, Nontender, Nondistended, Normal Bowel Sounds
Extremities: No Clubbing, Cyanosis, or Edema
Neuro: Nonfocal/Grossly Intact
Anticipated Discharge: > 48 hours
Subjective/Interval History
-
Date of Service: July 22, 2025
Patient is alert, awake, and oriented. Lightheadedness resolved. No chest pain, no shortness of breath. No fever, no vomiting.
Objective Data
-
Labs:
Laboratory Results
07/22/25
03:57
WBC 12.9 H
Hgb 10.1 L
Hct 29.8 L
Plt Count 365
Sodium 140
Potassium 3.9
Chloride 112 H
Carbon Dioxide 21 L
BUN 14
Creatinine 0.5 L
Glucose 177 H
Calcium 8.9
Vital Signs:
Vital Signs
Temp Pulse Resp BP Pulse Ox
98 F 65 16 130/58 98
07/22/25 08:26 07/22/25 08:30 07/22/25 08:30 07/22/25 08:30 07/22/25 08:30
I&O
07/21/25 07/22/25 07/23/25
06:59 06:59 06:59
Intake Total 1748.6 / 1847.4 447.6 / 447.6
Output Total 1170 / 1170
Balance 578.6 / 677.4 447.6 / 447.6
--- NOTE | 2025-07-22 09:46 | W.PN.CARDCBS ---
Today's Communication / Plan
-
Wean epi as able for MAP goal >65mmHg
Impression / Plan
-
Primary Collateral Analyst: Dr. Ac
Assessment:
Presentation with change in mental status
Hypotension
Sinus bradycardia
Anemia
History of HTN
chronic LBBB
Prostate cancer s/p radical prostatectomy 2023
Possible remote TX in 2004
ECHO 07/22/25: pending
Plan:
-Patient with change in mental status, last seen well at about 11 PM on 07/20/2025. Workup thus far is unremarkable.
-Possible that his presentation is related to an underlying infection which has not yet been identified or ingestion as sister tells me he takes many supplements and OTC medications
-My review of telemetry shows sinus rhythm with frequent PVCs and HRs largely 50s-60s. No significant pauses or high-grade AV block.
-I do not see a clear indication for permanent pacemaker at this time
-Wean epi as able for MAP goal greater than 65 mmHg
-Avoid AV lexi blockers�patient is on atenolol as an outpatient
-Agree with checking echo for completeness
Patient is a 70 yo M with PMH of chronic LBBB, HTN, prostate cancer s/p radical prostatectomy who presented to [facility] ER due to change in mental status. Noted to be weak and lethargic. Was bradycardic and hypotensive in ER resulting in cardiology
consultation. Trop negative. Head CT without acute abnormality. Patient's family sitting at the bedside and reports that following successful prostatectomy patient had an increase in his PSA level leading to the initiation of radiation therapy.
Radiation therapy has been Friday through Friday for the last 2 weeks and the patient has been more fatigued, but then the last 2 days the patient was so tired that he did not eat with his family like usual after coming home from work. 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 He is usually not done work until 1030 or 11:00 at night, but will still come home and eat a meal with his sister and then wake up in the morning time, but last night he did not want to eat with
family and today he was not up by noon time so the family checked on him and they could not wake him up although he appeared to be breathing on his own. Family called 911 and patient was brought to [facility] ER. Family reports the patient drinks a 12
pack a day and then also has shots of hard liquor. They do not suspect any illicit drug use. They report patient has lost weight. They said that overall the patient is generally fairly private and so they do not know much about his medical care
aside from the recent radiation therapy. Patient is chronically on atenolol 50 mg daily, but he manages all of his medications on his own. Family thinks that the patient had an TX treated at [facility] perhaps 20 years ago, but they
do not have any further details and patient completed Lexiscan nuclear stress test prior to his prostatectomy in September and at that time there is a medium size defect of decreased perfusion in the inferior/inferoseptal segment that was mildly
reversible but then normalized on prone imaging suggesting inferior soft tissue attenuation. The patient has not complained of any chest pain, SOB or palpitations recently.
Progress Note - Collateral Analyst
Subjective
Date of Service: July 22, 2025
No acute overnight events. Remains in the medical ICU on epinephrine for pressor support. He is awake and interactive today, resting comfortably. No cardiac complaints.
Objective
Labs:
07/22/25 03:57
07/22/25 03:57
Labs
Hgb 10.1 g/dL (13.0-18.0) L 07/22/25 03:57
Hct 29.8 % (39.0-52.0) L 07/22/25 03:57
Plt Count 365 10^3/uL (130-400) 07/22/25 03:57
PT 13.4 Sec (11.4-14.6) 07/21/25 19:38
INR 0.97 07/21/25 19:38
APTT 37.3 Sec (23.4-35.0) H 07/21/25 19:38
Sodium 140 mmol/L (135-145) 07/22/25 03:57
Potassium 3.9 mmol/L (3.5-5.1) 07/22/25 03:57
BUN 14 mg/dl (9-20) 07/22/25 03:57
Creatinine 0.5 mg/dL (0.7-1.3) L 07/22/25 03:57
Glucose 177 mg/dl (70-99) H 07/22/25 03:57
Troponins
07/21/25
14:02
Troponin I < 0.012
Vital Signs and I&O:
Vital Signs
Temp Pulse Resp BP Pulse Ox
98 F 65 16 130/58 98
07/22/25 08:26 07/22/25 08:30 07/22/25 08:30 07/22/25 08:30 07/22/25 08:30
Vital Signs
Temp Pulse Resp BP Pulse Ox
98 F 65 16 130/58 98
07/22/25 08:26 07/22/25 08:30 07/22/25 08:30 07/22/25 08:30 07/22/25 08:30
Intake & Output
07/20/25 07/21/25 07/22/25 07/23/25
06:59 06:59 06:59 06:59
Intake Total 1748.6 / 1847.4 546.4 / 546.4
Output Total 1170 / 1170
Balance 578.6 / 677.4 546.4 / 546.4
Physical Exam
Physical Exam
Gen: NAD, AA
HEENT: NC/AT, sclera anicteric
Neck: No JVD
CV: RRR, NL s1/s2, no M/R/G
Lungs: CTAB
Abd: S/ND
Ext: No LE edema
Skin: Warm, dry
Neuro: Non-focal
--- NOTE | 2025-07-22 11:08 | CON.INTV ---
Consultation
Consultation Request
Date/Time Consultation Requested: 07/21/25 19:00
Date/Time Consultation Performed: 07/22/25 08:00
Requesting Provider: Paulette Betancur MD
Performing Provider: Lan Zhou DO (Resident); Renny Bustamante MD
Reason for Consultation: ICU Management
Medical History
-
Chief Complaint: Weakness, AMS
History of Present Illness:
Keven Horvath is a 70M w/ PMHx of essential HTN, known LBBB, alcohol use disorder, multiple herbal supplement use and prostate CA s/p prostatectomy with recent (2 weeks) initiation of radiation therapy following elevations in PSA who is presenting
for weakness and altered mental status. Patient is a semi-unreliable historian at this time, so portions of history taken from ED and primary team notes who were able to speak with family members at bedside. Briefly, patient was brought in by family
members after he was found in an obtunded state laying on his stairwell. He was otherwise incoherent and stumbling. Per the patient he had been feeling more fatigued than usual in the 2 days preceding the event. He notes that he has been getting
radiotherapy to the pelvis for the past two weeks, but has otherwise gone about his days in a normal fashion. He denies experiencing and chest pains, shortness of breath, dizziness, nausea, or vomitig, although he endorses a lack of appetite in the
2 days preceding. He also endorses alcohol use. Family endorses a 12 pack of beer/day with additional shots of hard liquor daily. Patient himself endorses that he has been drinking less than he usually does, and notes his last drink was around
11:00pm on 07/20, when he had 2-3 mixed drinks. He also endorses herbal supplement use which he notes he has also been told to decrease. He notes the use of weight lifting supplements, though the only names that come to mind are Suga and Cordyceps.
ED COURSE
Found to be in sinus bradycardia on arrival with heart rates in the 40s.
Initially normotensive but then became hypotensive into the 80s/60s.
CBC with mild anemia but no leukocytosis on arrival.
Blood gas unremarkable. CMP unremarkable. TSH nml.
UA negative, tox screen positive for marijuana.
Head CT negative, CXR negative.
Initial EKG showed sinus bradycardia with occasional PVCs, known LBBB, and T wave inversions in lateral leads. Follow up showed sinus bradycardia with PACs and no T wave abnormalities. Troponin negative x 1.
Patient initially given 2L NS without improvement, then treated with atropine for bradycardia with modest improvement in HR but still remained hypotensive. He was thus initially started on Levophed but developed reflex bradycardia. Patient then
transitioned to Epinephrine and Dopamine.
At the time of my interview, patient is speaking in full sentences and states that he is feeling well, without any chest pain, SOB, dizziness, or palpitations. He also denies nausea or confusion.
Past Medical History
Past Medical History: Other (essential HTN, known LBBB, alcohol use disorder, multiple herbal supplement use and prostate CA s/p prostatectomy with recent (2 weeks) initiation of radiation therapy)
Past Surgical History: Urological (prostatectomy )
Social History
Tobacco: Non-smoker
Alcohol: Chronic Alcoholic
Drug: Marijuana and Other (herbal supplement use)
Living: With Family
Employment: Employed
Allergies / Home Medications
Allergies
Allergy/AdvReac Type Severity Reaction Status Date / Time
No Known Allergies Allergy Verified 07/21/25 17:11
Home Medications
�Medication �Instructions �Recorded �Confirmed �Last Taken �Type
atenolol 50 mg tablet 50 mg PO DAILY Blood Pressure 10/06/24 07/21/25 10/07/24 09:00 History
cholecalciferol (vitamin D3) 25 25 mcg PO DAILY Supplement ##0 10/06/24 07/21/25 10/04/24 History
mcg (1,000 unit) tablet (Vitamin
D3)
garlic 300 mg capsule 300 mg PO DAILY Supplement ##0 10/06/24 07/21/25 10/04/24 History
lisinopril 20 mg tablet 20 mg PO DAILY Blood Pressure 10/06/24 07/21/25 10/06/24 08:00 History
vitamin E 268 mg (400 unit) capsule 268 mg PO DAILY Supplement ##0 10/06/24 07/21/25 10/04/24 History
mirabegron 25 mg tablet,extended 25 mg PO DAILY Urinary Issue 07/21/25 07/21/25 Unknown History
release 24 hr (Myrbetriq)
Review of Systems
-
History Source: Patient
All other systems: Negative unless noted
Vitals / Labs / Diagnostic Testing
Vital Signs
Temp Pulse Resp BP Pulse Ox
98 F 59 13 125/53 98
07/22/25 08:26 07/22/25 10:00 07/22/25 10:00 07/22/25 10:00 07/22/25 10:00
Lab Data
07/22/25 03:57
07/22/25 03:57
Laboratory Results
07/21/25 07/21/25 07/21/25
17:50 18:57 19:38
PT Cancelled 13.4
INR Cancelled 0.97
APTT Cancelled 37.3 H
Microbiology
07/21/25 19:38 Nasal Swab Influenza Types A & B (ELLIS) - Final
Negative for Influenza A & B, NAAT
Negative results must be combined with clinical observations
and patient history.
Nucleic Acid Amplification test (NAAT)performed on the
[facility] [employer] NOW platform.
Physical Exam
-
HEENT: Normocephalic, Anicteric and Moist Mucous Membranes
Cardiovascular: S1/S2, Regular Rhythm and Other (no m/r/g)
Respiratory: Clear and Non-Labored Respirations
GI: Soft and Non Distended
Neurology: Awake, Alert, AO x 3, Tremors (mild) and Other (no asterixis. Speaking in full sentences and follows commands appropriately. Appears somewhat tired. )
Skin: Warm and Good Color
Assessment
-
Keven Horvath is a 70M w/ PMHx of essential HTN, known LBBB, alcohol use disorder, multiple herbal supplement use and prostate CA s/p prostatectomy with recent (2 weeks) initiation of radiation therapy who presented with altered mental status and
was found to be bradycardic and hypotensive in the ED, and was admitted to the ICU for pressor support. Status post atropine administration and discontinuation of AV lexi blocking agents, his heart rates have been stable and blood prssures stable
on epinephrine (dopamine discontinued overnight). Workup for etiology of his condition has thus far been unremarkable. Suspect it could be secondary to supplement use, acute on chronic alcohol use, or infection. We will continue to follow while he
is in the ICU for pressor support.
Assessment
Altered Mental Status
Hypotension
Sinus Bradycardia
Anemia
Chronic LBBB
Herbal Supplement Use
Alcohol Use Disorder
Impending Alcohol Withdrawal (Last Drink 11:00pm 07/20)
Prostate CA currently undergoing radiation therapy
PLAN
Neuro
Start MSAS protocol
Consider phenobarbital taper if withdrawal symptoms present
Agree with IV thiamine for 9 doses, then start maintainence
Cardiovasc
Dopamine off, continue Epi. Wean as BP allows. MAP goal >65 mmHg.
ECHO pending
Continue to monitor telemetry
Hold ACEi/BB
GI
Patient AOx3 and alert, can restart diet
ID
Mild leukocytosis this AM, likely reactive. Continue to follow.
Monitor temps.
Data Reviewed
-
EKG: Tracing personally visualized and interpreted and Report reviewed by me
Radiology: Image personally visualized and interpreted and Report reviewed by me
CT Scan: Image personally visualized and interpreted and Report reviewed by me
Labs: Labs reviewed by me
Critical Care Time (in minutes): 35
--- NOTE | 2025-07-22 11:29 | PTCARENOTE ---
pt assist x2 oob to chair and bathroom. condom cath removed, epi gtt being weaned as tolerated. ivf capped per dr. calderon order, pt started on diet. chair alarm on and functioning. hr in 60s.
--- NOTE | 2025-07-22 11:59 | CM ---
Initial assessment completed with patient whose sister and nephew are currently living with him in a ground floor apartment in a 3 story home, no steps to enter. 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 There is a RW and SPC in
the home that his sister uses. No in-home services. No HC-POA. No VA benefits. No psychiatric hospitalizations. PCP is Dr. Maximo Rodriguez. Pharmacy is [facility] on in [place]. Discharge POC: Anticipate home with no needs.
[2025-07-22] MEDS: LEVOPHED 250 IV (13:00)
--- NOTE | 2025-07-22 13:03 | PTCARENOTE ---
pt with slight drop in BP- Dr. Bustamante aware and ordered epi to be changed to levophed gtt. see dec. levophed started at 2mcg.
--- NOTE | 2025-07-22 13:23 | PTCARENOTE ---
pt became bradycardiac 38-40, Dr. Bustamante and Dr. Oliva aware. pt restarted back on 2mcg of epi and levo off per Dr. Bustamante.
--- NOTE | 2025-07-22 13:23 | PTCARENOTE ---
pt became bradycardiac 38-40, Dr. Bustamante and Dr. Oliva aware. pt restarted back on 2mcg of epi per Dr. Bustamante.
[2025-07-22] MEDS: ADRENALIN 250 IV (16:15)
[2025-07-22] MEDS: LOVENOX 40 MG SC (16:21)
--- NOTE | 2025-07-22 16:24 | PTCARENOTE ---
right upper picc placed by iv team, xray completed, both lumens flush with blood return. epi via picc- gtt remains at 2mcg hr above 50 and map>65. pt oob to chair for approx 3 hours today. no further change in assessment
--- NOTE | 2025-07-22 20:45 | PTCARENOTE ---
Assumed care of pt at 1900. Pt is A/O x 2-3, forgetful to time and situation at times. Received pt on epinephrine at 2mcg/min. SR/SB 50s-60s on monitor with PVCs. Assessment as documented in nursing shift assessment flowsheet. MSAS ongoing but pt
has scored a 0 so far. Bed alarm activated.
[2025-07-23] VITALS (23 sets, daily range): BP systolic 106–144; BP diastolic 56–84; BMI 20.3
--- NOTE | 2025-07-23 00:50 | PTCARENOTE ---
Midnight assessment unchanged. Epinephrine has been off since 2134. SB 50s on monitor, SpO2 98-100% on RA.
[2025-07-23 05:40] LABS: Hematocrit 27.2 % (39.0-52.0); Hemoglobin 9.3 g/dL (13.0-18.0); Mean Corp Hgb Conc. 34.2 g/dL (33.0-37.0); Mean Corpuscular Volume 92.2 fL (80.0-94.0); Platelet Count 214 10^3/uL (130-400); Red Cell Dist. Width 13.7 % (11.5-14.5)
[2025-07-23 05:45] LABS: Blood Urea Nitrogen 9 mg/dl (9-20); Calcium 7.9 mg/dl (8.4-10.2); Carbon Dioxide 26 mmol/L (22-30); Chloride 111 mmol/L (98-107); Estimated Creatinine Clearance 101 ml/min; Glucose 84 mg/dl (70-99); Magnesium 1.9 mg/dl (1.6-2.3); Potassium 3.8 mmol/L (3.5-5.1); Sodium 139 mmol/L (135-145); eGFR > 60.00
--- NOTE | 2025-07-23 06:10 | PTCARENOTE ---
0400 assessment unchanged. Pt remains off Epinephrine. Has been sleeping most of the shift. CHG cloth bath done and linens/gown changed this AM.
[2025-07-23] MEDS: CALCIUM GLUCONATE 130 MG IV (06:24)
[2025-07-23] MEDS: THIAMINE INJECTION 255 MG IV ×3 (07:58→23:20)
[2025-07-23] MEDS: FOLVITE 1 MG PO (07:59)
--- NOTE | 2025-07-23 08:07 | PTCARENOTE ---
Received patient from fast food shift lead. patient is somnolent. oriented to self and place, reoriented to time. He is on room air, sinus alayna on monitor, no edema. Epi gtt has been off since 2100 prior shift. Patient is ordered diet, has condom cath
on for urinating. will review orders and call pinedo is within reach.
--- NOTE | 2025-07-23 08:17 | W.PN.INTV ---
Today's Communication / Plan
Recommendations
Continue holding beta-blockers + AV lexi blockers
No permanent PPM required at this time per cardiology
Decision to resume a beta-hayden will be left to cardiology; if beta-hayden is needed, believe he would benefit more from a nonspecific beta-hayden (i.e. Coreg)
PT/OT
Continue outpatient follow-up with radiation oncology for treatment of his prostate cancer
Advised him not to take any additional supplements that are unregulated from head shops as this could have played a role in him developing his bradycardia/hypotension
Keep K>4, Mg>2
Patient is stable for transfer out of ICU to IVU. No additional recommendations at this time. Financial Services Consultant/Pulmonary service will now sign off. Please reconsult if there are any additional questions/concerns, or if patient's respiratory status
deteriorates.
Assessment
-
Assessment: 70-year-old male with PMHx of hypertension, prostate cancer s/p prostatectomy currently on XRT, alcohol use disorder, use of weightlifting supplements who p/w AMS, found passed out by sister. 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 Was
hypotensive in ER (BP 80s/50s) and obtunded with HR in 40-50s. Labs showed normal WBC at 8.2, Hb 10.4, blood gas showed neutral pH of 7.4 with pCO2 40, creatinine 0.6, glucose 128, negative troponin x 1, and TSH + free T4 also WNL and urinalysis
was negative for signs UTI. UDS was positive for marijuana only and alcohol screen was negative. COVID-19 antigen was also negative. Atropine 0.5mg IVP x2 given with improvement in HR, but remained hypotensive; 2L NS 0.9% given and then levophed
started with improvement in BP but HR still dropping down to 30s; hence he was started on dopamine gtt and admitted to ICU for further care.
Impression:
#Bradyarrhythmia with AMS + hypotension --> sinus bradycardia, likely as a result of atenolol in setting of unknown supplements/synthetic compounds he takes from head shops, possibly in setting of increased vagal tone as he states that he 'used to
be a runner'
#AMS - markedly improved
#Alcohol use disorder (drinks approximately 12 beers per day)
#THC use
#Hx of HTN
#Chronic LBBB
#Prostate cancer s/p radical prostatectomy (2023) currently obtaining XRT through here at (last radiation was earlier this week on Friday, Friday and Friday - Dr. Castellon)
Plan:
- Now off epinephrine gtt and HR has been >50; of note, he did not tolerate levophed as this made his bradycardia worse
- Maintain HR>50, ideally want HR between 60-100
- Replete electrolytes with K>4, Mg>2
- Maintain MAP>65
- TFTs are normal
- Avoid beta-blockers or AV lexi blockers; he was previously taking his atenolol however hypertension. He said years ago his heart rate would go into the 180s but he reportedly does not take atenolol for this reason. If he is going to remain on a
beta-hayden, should change to a lower dose and preferably with a nonspecific beta hayden, like Coreg
- Cardiology consulted; no clear indication for permanent pacemaker at this time; telemetry reviewed yesterday showing no significant pauses or high-grade AV block
- Although WBC elevated yesterday, this was likely reactive as there is no clear infection (negative UA, retrocardiac opacification likely due to atelectasis as he has no clinical signs or symptoms consistent with pneumonia; he remains afebrile)
- Follow up infectious workup (blood Cx - drawn 07/21/2025, showing NGTD)
- Trend WBC and monitor temperature curve
- Monitor off ABx
- Monitor for signs of EtOH WD - currently there is none
- MSAS
- Continue thiamine and folate supplementation
- Maintain SpO2 >90-94%, using supplemental O2 if needed
- prn nebulized bronchodilators - not currently bronchospastic
- Incentive spirometer encouraged 10x per hour for at least 4 hrs a day
- PT/OT
- Maintain euglycemia with goal BG 140-180
- Trend H/H and transfuse if needed to keep Hb>7g/dL; keep plt>20k, unless there is concern for bleeding then keep plt>50k
- DVT ppx: LMWH
Patient is stable for transfer out of ICU to IVU. No additional recommendations at this time. Financial Services Consultant/Pulmonary service will now sign off. Thank you for allowing us to be involved in the care of this patient. Please reconsult if there are
any additional questions/concerns, or if patient's respiratory status deteriorates.
Total time spent today was 59 minutes for this encounter. Time includes reviewing laboratory test/imaging results, reviewing pertinent medical records, obtaining and reviewing medical history, performing an appropriate exam, ordering medications,
tests and procedures. Time also includes documentation of this encounter, coordinating patient care and communicating with other healthcare professionals. Total time does not include separately billed tests performed on this date of service.
Subjective Dataa
Subjective Data
Date of Service:
Date of Service: July 23, 2025
Chief Complaint: Financial Services Consultant Follow Up
Subjective:
Patient was seen and evaluated today at bedside. He is awake and in no acute distress. Heart rate 58, BP 120/58 and saturating 98% on room air. He has been off epinephrine drip since last night at 9:30 PM. Afebrile overnight. Currently denies
SHEIKH, chest pain, SOB, abdominal pain, nausea, fevers or chills.
Review of Systems
General: Other (Negative unless mentioned above)
Objective Data
Data Reviewed
Vital Signs / I&O / Oxygen:
Vital Signs
Temp Pulse Resp BP Pulse Ox
97.5 F 51 17 142/67 99
07/23/25 08:04 07/23/25 08:00 07/23/25 08:00 07/23/25 08:00 07/23/25 08:21
Intake and Output
07/22/25 07/23/25 07/24/25
06:59 06:59 06:59
Intake Total 1748.6 / 1847.4 1449.0 / 1449.0 255 / 255
Output Total 1170 / 1170 1999
Balance 578.6 / 677.4 -551.0 / -551.0 255 / 255
SaO2 99
Nasal Cannula flow liters per 1
minute
Physical Exam
General: Respiratory Distress (negative), Comfortable, Chills (negative) and Sweats (negative)
HEENT: Normocephalic and Anicteric
Cardiovascular: S1-S2, Peripheral Edema (negative) and Other (Bradycardic)
Respiratory: Wheeze (negative), Crackles (negative), Rhonchi (negative), Non-Labored Respirations and Stridor (negative)
GI: Soft, Non Distended, Non Tender and Normal Bowel Sounds
Neurology: Awake, Alert, Oriented, Tremors (negative) and Other (Drowsy at times)
Skin: Warm, Dry, Cyanosis (negative) and Jaundice (negative)
Labs/Micro/Reports
Lab Data
07/23/25 05:11
07/23/25 05:11
Microbiology
07/21/25 19:38 Nose MRSA Screen - Final
No Methicillin Resistant Staphylococcus aureus isolated.
07/21/25 14:20 Blood/Venous Blood Culture - Preliminary
No Growth in 24 hours- Final report to follow
07/21/25 14:02 Blood/Venous Blood Culture - Preliminary
No Growth in 24 hours- Final report to follow
07/21/25 19:38 Nasal Swab Influenza Types A & B (ELLIS) - Final
Negative for Influenza A & B, NAAT
Negative results must be combined with clinical observations
and patient history.
Nucleic Acid Amplification test (NAAT)performed on the
[facility] platform.
--- NOTE | 2025-07-23 09:00 | W.PN.HOSP.TC ---
Today's Communication/Plan
-
Stable for IVU
Assessment / Plan
Assessment / Plan
HPI: 70 yo man with hx essential HTN, LBBB, prostate CA, CAD s/p PCI brought to the ER for somnolence. He was found to be hypotensive and bradycardic in the ER. Concern for intoxication.
#Shock
#Bradycardia
S/p 2L NS without improvement, given atropine 0.5mg x 1 with brief response in HR to 50's then down
Levophed switched to dopamine secondary to bradycardia, now on IV epinephrine
Appreciate manager cost and cardiology input, blood pressure normalized s/p epinephrine drip
Cardiology suspects a noncardiac cause of his symptoms, such as ingestion of illicit substance or beta-hayden overdose
Per cardiology, no need for pacemaker, recommends patient remain off of atenolol and other AV lexi blocking agents
Echo: normal EF, mild , mild TR, +pulm HTN
#Altered Mental Status
Head CT neg, resolved
Suspect secondary to THC consumption, resolved
#Essential HTN
Permanently discontinue atenolol
Hold lisinopril
#Hx Prostate CA
Receiving radiation outpatient
DVT prophylaxis�subcu Lovenox
Full code
Total time spent to see the patient on the floor, examine the patient, review data and lab results, discuss treatment plan with patient, nursing staff around 40 minutes.
Physical Exam
General: No acute distress
HEENT: Normocephalic, Atraumatic, EOMI, MMM
Respiratory: Clear to Auscultation bilaterally
Cardiac: Normal S1/S2, Regular Rate and Rhythm
GI: Soft, Nontender, Nondistended, Normal Bowel Sounds
Extremities: No Clubbing, Cyanosis, or Edema
Neuro: Nonfocal/Grossly Intact
Anticipated Discharge: Within 24 hours
Subjective/Interval History
-
Date of Service: July 23, 2025
Patient reports feeling better, he is less tired. He denies lightheadedness, denies dizziness. No fever, no vomiting.
Objective Data
-
Labs:
Laboratory Results
07/23/25
05:11
WBC 5.0
Hgb 9.3 L
Hct 27.2 L
Plt Count 214 D
Sodium 139
Potassium 3.8
Chloride 111 H
Carbon Dioxide 26
BUN 9
Creatinine 0.5 L
Glucose 84
Calcium 7.9 L
Vital Signs:
Vital Signs
Temp Pulse Resp BP Pulse Ox
97.5 F 51 17 142/67 99
07/23/25 08:04 07/23/25 08:00 07/23/25 08:00 07/23/25 08:00 07/23/25 08:21
I&O
07/22/25 07/23/25 07/24/25
06:59 06:59 06:59
Intake Total 1748.6 / 1847.4 1449.0 / 1449.0 255 / 255
Output Total 1170 / 1170 1999 / 1999
Balance 578.6 / 677.4 -551.0 / -551.0 255 / 255
[2025-07-23 09:29] LABS: Glycohemoglobin (HgbA1c) 5.7 % (4.0-5.6)
--- NOTE | 2025-07-23 14:10 | W.PN.CARDCBS ---
Today's Communication / Plan
-
We will sign off, please recall as needed
Impression / Plan
-
Primary Mortgage Loan Closer: Dr. Ac
Assessment:
Presentation with change in mental status
Hypotension
Sinus bradycardia
Anemia
History of HTN
chronic LBBB
Prostate cancer s/p radical prostatectomy 2023
Possible remote NC in 2004
ECHO 07/22/25: NL LV function no high grade valve dz
Plan:
-Patient with change in mental status, last seen well at about 11 PM on 07/20/2025. Still somewhat lethargic but improved from admission when he was essentially obtunded.
-Has been hypotensive and bradycardic requiring epinephrine for pressor support
-Suspect toxic metabolic etiology rather than a primary cardiac cause of his symptoms� underlying infx, adrenal insufficiency, ingestion of illicit substance or beta-hayden overdose are all possibilities
-Possible that his presentation is related to an underlying infection which has not yet been identified or ingestion as sister tells me he takes many supplements and OTC medications
-My review of telemetry shows sinus rhythm with frequent PVCs and HRs largely 50s-60s. No significant pauses or high-grade AV block - clear indication for permanent pacemaker at this time
-Weaned off epi
-Avoid AV lexi blockers�patient is on atenolol as an outpatient, would not resume this med
We will sign off, please recall as needed
Patient is a 70 yo M with PMH of chronic LBBB, HTN, prostate cancer s/p radical prostatectomy who presented to [facility] ER due to change in mental status. Noted to be weak and lethargic. Was bradycardic and hypotensive in ER resulting in cardiology
consultation. Trop negative. Head CT without acute abnormality. Patient's family sitting at the bedside and reports that following successful prostatectomy patient had an increase in his PSA level leading to the initiation of radiation therapy.
Radiation therapy has been Friday through Friday for the last 2 weeks and the patient has been more fatigued, but then the last 2 days the patient was so tired that he did not eat with his family like usual after coming home from work. 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 He is usually not done work until 1030 or 11:00 at night, but will still come home and eat a meal with his sister and then wake up in the morning time, but last night he did not want to eat with
family and today he was not up by noon time so the family checked on him and they could not wake him up although he appeared to be breathing on his own. Family called 911 and patient was brought to [facility] ER. Family reports the patient drinks a 12
pack a day and then also has shots of hard liquor. They do not suspect any illicit drug use. They report patient has lost weight. They said that overall the patient is generally fairly private and so they do not know much about his medical care
aside from the recent radiation therapy. Patient is chronically on atenolol 50 mg daily, but he manages all of his medications on his own. Family thinks that the patient had an NC treated at [facility] perhaps 20 years ago, but they
do not have any further details and patient completed Lexiscan nuclear stress test prior to his prostatectomy in September and at that time there is a medium size defect of decreased perfusion in the inferior/inferoseptal segment that was mildly
reversible but then normalized on prone imaging suggesting inferior soft tissue attenuation. The patient has not complained of any chest pain, SOB or palpitations recently.
Progress Note - Mortgage Loan Closer
Subjective
Date of Service: July 23, 2025
No acute overnight events. Resting comfortably in the MICU at the time of my evaluation this morning.
Objective
Labs:
07/23/25 05:11
07/23/25 05:11
Labs
Hgb 9.3 g/dL (13.0-18.0) L 07/23/25 05:11
Hct 27.2 % (39.0-52.0) L 07/23/25 05:11
Plt Count 214 10^3/uL (130-400) D 07/23/25 05:11
PT 13.4 Sec (11.4-14.6) 07/21/25 19:38
INR 0.97 07/21/25 19:38
APTT 37.3 Sec (23.4-35.0) H 07/21/25 19:38
Sodium 139 mmol/L (135-145) 07/23/25 05:11
Potassium 3.8 mmol/L (3.5-5.1) 07/23/25 05:11
BUN 9 mg/dl (9-20) 07/23/25 05:11
Creatinine 0.5 mg/dL (0.7-1.3) L 07/23/25 05:11
Glucose 84 mg/dl (70-99) 07/23/25 05:11
Troponins
07/21/25
14:02
Troponin I < 0.012
Vital Signs and I&O:
Vital Signs
Temp Pulse Resp BP Pulse Ox
99.1 F 58 28 126/76 98
07/23/25 12:30 07/23/25 13:00 07/23/25 13:00 07/23/25 13:00 07/23/25 12:00
Vital Signs
Temp Pulse Resp BP Pulse Ox
99.1 F 58 28 126/76 98
07/23/25 12:30 07/23/25 13:00 07/23/25 13:00 07/23/25 13:00 07/23/25 12:00
Intake & Output
07/21/25 07/22/25 07/23/25 07/24/25
06:59 06:59 06:59 06:59
Intake Total 1748.6 / 1847.4 1449.0 / 1449.0 495 / 495
Output Total 1170 / 1170 1999 / 1999
Balance 578.6 / 677.4 -551.0 / -551.0 495 / 495
Physical Exam
Physical Exam
Gen: NAD, AAOx3
HEENT: NC/AT, sclera anicteric
Neck: No JVD
CV: RRR, NL s1/s2, no M/R/G
Lungs: CTAB
Abd: S/ND
Ext: No LE edema
Skin: Warm and well-perfused, dry
Neuro: Non-focal
[2025-07-23] MEDS: LOVENOX 40 MG SC (17:46)
--- NOTE | 2025-07-23 22:44 | PTCARENOTE ---
Assumed care of pt at 1900. Pt is A/O x3-4, forgetful sometimes to situation and time of day but tends to reorient himself. Drowsy/sleeping between care but easily wakes up and converses appropriately. Currently IVU level of care. Has been SB 50s/SR
60s with PVCs on monitor. BPs WNL. Assessment as documented in nursing shift assessment flowsheet. Bed alarm activated.
[2025-07-24] VITALS (14 sets, daily range): BP systolic 121–152; BP diastolic 63–82; PULSE 63–70; O2SAT 99
[2025-07-24 05:48] LABS: Hematocrit 29.9 % (39.0-52.0); Hemoglobin 9.9 g/dL (13.0-18.0); Mean Corp Hgb Conc. 33.1 g/dL (33.0-37.0); Mean Corpuscular Volume 88.7 fL (80.0-94.0); Platelet Count 228 10^3/uL (130-400); Red Cell Dist. Width 13.4 % (11.5-14.5)
[2025-07-24 06:17] LABS: Blood Urea Nitrogen 11 mg/dl (9-20); Calcium 8.1 mg/dl (8.4-10.2); Carbon Dioxide 26 mmol/L (22-30); Chloride 107 mmol/L (98-107); Estimated Creatinine Clearance 101 ml/min; Glucose 90 mg/dl (70-99); Potassium 3.9 mmol/L (3.5-5.1); Sodium 136 mmol/L (135-145); eGFR > 60.00
[2025-07-24] MEDS: FOLVITE 1 MG PO (07:44)
[2025-07-24] MEDS: THIAMINE INJECTION 255 MG IV (07:44)
[2025-07-24 08:03] LABS: Magnesium 1.6 mg/dl (1.6-2.3)
[2025-07-24] MEDS: KCL 20 MEQ PO (09:01)
[2025-07-24] MEDS: MAGNESIUM SULFATE 100 IV (09:01)
--- NOTE | 2025-07-24 09:53 | PTCARENOTE ---
0714-run of NSVT, pt asymptomatic. Dr. Silva and Dr. Chester notified. Mag added to am labs. Once labs results 1gm IV mag and 20meq PO KCL given. Pt for transfer to IVU, awaiting bed. Monitor SBR/SR with PVCs. Pt OOB to chair with assistance.
[2025-07-24] MEDS: VITAMIN B1 100 MG PO (12:01)
--- NOTE | 2025-07-24 13:01 | W.PN.HOSP.TC ---
Today's Communication/Plan
-
Replete magnesium and potassium, monitor on telemetry
Discharge when cleared by cardiology
Assessment / Plan
Assessment / Plan
HPI: 70 yo man with hx essential HTN, LBBB, prostate CA, CAD s/p PCI brought to the ER for somnolence. He was found to be hypotensive and bradycardic in the ER. Concern for intoxication.
#Shock
#Bradycardia
S/p 2L NS without improvement, given atropine 0.5mg x 1 with brief response in HR to 50's then down
Levophed switched to dopamine secondary to bradycardia, now on IV epinephrine
Appreciate float phlebotomist and cardiology input, blood pressure normalized s/p epinephrine drip
Cardiology suspects a noncardiac cause of his symptoms, such as ingestion of illicit substance or beta-hayden overdose
Per cardiology, no need for pacemaker, recommends patient remain off of atenolol and other AV lexi blocking agents
Echo: normal EF, mild , mild TR, +pulm HTN
#Nonsustained ventricular tachycardia
Potassium 3.9, magnesium 1.6, will replete both to keep potassium greater than 4, and magnesium greater than 2
Unable to start patient on beta-hayden secondary to his bradycardia, continue to monitor on telemetry, follow-up recommendations from cardiology
#Altered Mental Status/hypersomnolence
#Cognitive impairment
Head CT neg. Hypersomnolence likely due to THC consumption, resolved
He appears to have baseline cognitive impairment, OT has been consulted
#Essential HTN
Permanently discontinue atenolol
Hold lisinopril, patient's blood pressure is acceptable without any medications
#Hx Prostate CA
Receiving radiation outpatient
DVT prophylaxis�subcu Lovenox
Full code
Total time spent to see the patient on the floor, examine the patient, review data and lab results, discuss treatment plan with patient, nursing staff around 50 minutes.
Physical Exam
General: No acute distress
HEENT: Normocephalic, Atraumatic, EOMI, MMM
Respiratory: Clear to Auscultation bilaterally
Cardiac: Normal S1/S2, Regular Rate and Rhythm
GI: Soft, Nontender, Nondistended, Normal Bowel Sounds
Extremities: No Clubbing, Cyanosis, or Edema
Neuro: Nonfocal/Grossly Intact
Anticipated Discharge: 24 - 48 hours
Subjective/Interval History
-
Date of Service: July 24, 2025
Patient denies shortness of breath, denies chest pain, denies palpitations. No fever, no vomiting.
Objective Data
-
Labs:
Laboratory Results
07/24/25
05:36
WBC 6.5
Hgb 9.9 L
Hct 29.9 L
Plt Count 228
Sodium 136
Potassium 3.9
Chloride 107
Carbon Dioxide 26
BUN 11
Creatinine 0.5 L
Glucose 90
Calcium 8.1 L
Vital Signs:
Vital Signs
Temp Pulse Resp BP Pulse Ox
98.4 F 55 23 121/65 100
07/24/25 12:19 07/24/25 12:00 07/24/25 11:00 07/24/25 12:00 07/24/25 12:00
I&O
07/23/25 07/24/25 07/25/25
06:59 06:59 06:59
Intake Total 1449.0 / 1449.0 1310 / 1310 710 / 710
Output Total 1999 / 1999 1840 / 1840
Balance -551.0 / -551.0 -530 / -530 710 / 710
--- NOTE | 2025-07-24 13:47 | W.PN.CARDCBS ---
Today's Communication / Plan
-
Replete electrolytes
Can consider cardiac monitoring as an outpatient
Impression / Plan
-
Primary Stringer Up Soldering Machine: Dr. Ac
Assessment:
Presentation with change in mental status
Hypotension
Sinus bradycardia
Anemia
History of HTN
chronic LBBB
Prostate cancer s/p radical prostatectomy 2023
Possible remote GA in 2004
ECHO 07/22/25: NL LV function no high grade valve dz
Plan:
-Patient with change in mental status, last seen well at about 11 PM on 07/20/2025. Still somewhat lethargic but improved from admission when he was essentially obtunded.
-Suspect toxic metabolic etiology rather than a primary cardiac cause of his symptoms� underlying infx, adrenal insufficiency, ingestion of illicit substance or beta-hayden overdose are all possibilities
-No significant pauses or high-grade AV block - clear indication for permanent pacemaker at this time
-Avoid AV lexi blockers for now�patient was on atenolol as an outpatient
-PVCs and run of asymptomatic NSVT on tele
-Replete electrolytes
-Can consider cardiac monitoring as an outpatient - keep on tele while inpatient
Patient is a 70 yo M with PMH of chronic LBBB, HTN, prostate cancer s/p radical prostatectomy who presented to [facility] ER due to change in mental status. Noted to be weak and lethargic. Was bradycardic and hypotensive in ER resulting in cardiology
consultation. Trop negative. Head CT without acute abnormality. Patient's family sitting at the bedside and reports that following successful prostatectomy patient had an increase in his PSA level leading to the initiation of radiation therapy.
Radiation therapy has been Friday through Friday for the last 2 weeks and the patient has been more fatigued, but then the last 2 days the patient was so tired that he did not eat with his family like usual after coming home from work. 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 He is usually not done work until 1030 or 11:00 at night, but will still come home and eat a meal with his sister and then wake up in the morning time, but last night he did not want to eat with
family and today he was not up by noon time so the family checked on him and they could not wake him up although he appeared to be breathing on his own. Family called 911 and patient was brought to [facility] ER. Family reports the patient drinks a 12
pack a day and then also has shots of hard liquor. They do not suspect any illicit drug use. They report patient has lost weight. They said that overall the patient is generally fairly private and so they do not know much about his medical care
aside from the recent radiation therapy. Patient is chronically on atenolol 50 mg daily, but he manages all of his medications on his own. Family thinks that the patient had an GA treated at [facility] perhaps 20 years ago, but they
do not have any further details and patient completed Lexiscan nuclear stress test prior to his prostatectomy in September and at that time there is a medium size defect of decreased perfusion in the inferior/inferoseptal segment that was mildly
reversible but then normalized on prone imaging suggesting inferior soft tissue attenuation. The patient has not complained of any chest pain, SOB or palpitations recently.
Progress Note - Stringer Up Soldering Machine
Subjective
Date of Service: July 24, 2025
Remains asymptomatic from cardiovascular standpoint. Not experiencing any chest pain, dyspnea or palpitations. Short run of nonsustained VT seen on telemetry this morning however patient was asymptomatic with this.
Objective
Labs:
07/24/25 05:36
07/24/25 05:36
Labs
Hgb 9.9 g/dL (13.0-18.0) L 07/24/25 05:36
Hct 29.9 % (39.0-52.0) L 07/24/25 05:36
Plt Count 228 10^3/uL (130-400) 07/24/25 05:36
PT 13.4 Sec (11.4-14.6) 07/21/25 19:38
INR 0.97 07/21/25 19:38
APTT 37.3 Sec (23.4-35.0) H 07/21/25 19:38
Sodium 136 mmol/L (135-145) 07/24/25 05:36
Potassium 3.9 mmol/L (3.5-5.1) 07/24/25 05:36
BUN 11 mg/dl (9-20) 07/24/25 05:36
Creatinine 0.5 mg/dL (0.7-1.3) L 07/24/25 05:36
Glucose 90 mg/dl (70-99) 07/24/25 05:36
Troponins
07/21/25
14:02
Troponin I < 0.012
Vital Signs and I&O:
Vital Signs
Temp Pulse Resp BP Pulse Ox
98.4 F 55 23 121/65 100
07/24/25 12:19 07/24/25 12:00 07/24/25 11:00 07/24/25 12:00 07/24/25 12:00
Vital Signs
Temp Pulse Resp BP Pulse Ox
98.4 F 55 23 121/65 100
07/24/25 12:19 07/24/25 12:00 07/24/25 11:00 07/24/25 12:00 07/24/25 12:00
Intake & Output
07/22/25 07/23/25 07/24/25 07/25/25
06:59 06:59 06:59 06:59
Intake Total 1748.6 / 1847.4 1449.0 / 1449.0 1310 / 1310 710 / 710
Output Total 1170 / 1170 1999 / 1999
Balance 578.6 / 677.4 -551.0 / -551.0 -530 / -530 710 / 710
Physical Exam
Physical Exam
Gen: NAD, AA
HEENT: NC/AT, sclera anicteric
Neck: No JVD
CV: RRR, NL s1/s2, no M/R/G
Lungs: CTAB
Abd: S/ND
Ext: No LE edema
Skin: Warm, dry
Neuro: Non-focal
[2025-07-24] MEDS: LOVENOX 40 MG SC (18:01)
--- NOTE | 2025-07-24 18:13 | PTCARENOTE ---
received patient from ICU, patient knows name, date, where he lives, year etc. after he answers you then he starts to babble on different subjects which has no rhythm or reason. INT left AC and left hand intact. right PICC line intact, RUE
restriction. monitor shows NSR with PVC's, VSS . patient has #30 condom cath on, draining yellow urine. bed alarm remains on and I ordered dinner for patient.
[2025-07-25] VITALS (7 sets, daily range): BP systolic 116–144; BP diastolic 57–118
--- NOTE | 2025-07-25 05:07 | PTCARENOTE ---
Assumed care on pt at 1900, aaox3 with some forgetfulness and drowsiness. Bed alarm in place and functioning well, makes no attempts to get OOB unassisted, call pinedo within reach. SR/SB on tele, denies CP or SOB, pox 100% RA. BP stable. Double
lumen PICC to ROSIE, MEHRDAD wipes done. Pt updated on POC and in agreement.
[2025-07-25 05:24] LABS: Blood Urea Nitrogen 10 mg/dl (9-20); Calcium 8.1 mg/dl (8.4-10.2); Carbon Dioxide 28 mmol/L (22-30); Chloride 103 mmol/L (98-107); Estimated Creatinine Clearance 101 ml/min; Glucose 100 mg/dl (70-99); Magnesium 1.9 mg/dl (1.6-2.3); Potassium 4.0 mmol/L (3.5-5.1); Sodium 133 mmol/L (135-145); eGFR > 60.00
--- NOTE | 2025-07-25 08:06 | W.PN.HOSP.TC ---
Today's Communication/Plan
-
Cont cardiac monitoring
Discharge planning SNF rehab
Assessment / Plan
Assessment / Plan
Physical Exam
General: No acute distress, appears comfortable at this time
HEENT: Normocephalic, Atraumatic, EOMI, MMM
Respiratory: Clear to Auscultation bilaterally
Cardiac: Normal S1/S2, Regular Rate and Rhythm
GI: Soft, Nontender, Nondistended, Normal Bowel Sounds
Extremities: No Clubbing, Cyanosis, or Edema
Neuro: AOx3 conversant coherent
Psych: Calm
HPI: 70 yo man with hx essential HTN, LBBB, prostate CA, CAD s/p PCI brought to the ER for somnolence. He was found to be hypotensive and bradycardic in the ER. Concern for intoxication.
#Shock
#Bradycardia
weaned off pressors Levophed, dopamine, epinephrine
Appreciate nephrology social worker and cardiology input
Per cardiology, no need for pacemaker, recommends patient remain off of atenolol and other AV lexi blocking agents
Echo: normal EF, mild , mild TR, +pulm HTN
#NSVT
Power Hair Clipper on Discharge as per Cardiology
#Altered Mental Status/hypersomnolence
#Cognitive impairment
Head CT neg. Hypersomnolence likely due to THC consumption, resolved
PT/OT appreciated SNF rehab
#Essential HTN
Permanently discontinue atenolol
Hold lisinopril, BP consistently within goal w/o
#Hx Prostate CA
Receiving radiation outpatient
DVT prophylaxis�subcu Lovenox
Full code
Total time spent to see the patient on the floor, examine the patient, review data and lab results, discuss treatment plan with patient, nursing staff around 40 minutes.
Anticipated Discharge: 24 - 48 hours
Subjective/Interval History
-
Date of Service: July 25, 2025
No acute distress, sitting up comfortably in bed. Overall reports feeling well. Denies new acute issues at this time.
Objective Data
-
Labs:
Laboratory Results
07/25/25
04:27
Sodium 133 L
Potassium 4.0
Chloride 103
Carbon Dioxide 28
BUN 10
Creatinine 0.5 L
Glucose 100 H
Calcium 8.1 L
Vital Signs:
Vital Signs
Temp Pulse Resp BP Pulse Ox
98.0 F 58 16 120/77 100
07/25/25 07:18 07/25/25 05:00 07/25/25 07:18 07/25/25 04:20 07/25/25 07:18
I&O
07/24/25 07/25/25 07/26/25
06:59 06:59 06:59
Intake Total 1310 / 1310 1190 / 1190
Output Total 1840 / 1840 1750 / 1750
Balance -530 / -530 -560 / -560
[2025-07-25] MEDS: FOLVITE 1 MG PO (09:53)
[2025-07-25] MEDS: VITAMIN B1 100 MG PO (09:53)
--- NOTE | 2025-07-25 10:29 | PTCARENOTE ---
received patient this am, sleeping but easily aroused, orient x 3. bed alarm remains on for safety. monitor shows NSR, VSS. ordered breakfast for patient. RUE restriction due to PICC line, vascular access team came to unit to see if PICC line is
needed, TT Dr. Hallman will assess and let us know. patient has condom cath on # 30, draining dark urine. patient able to use call pinedo appropriately.
--- NOTE | 2025-07-25 12:01 | CM ---
Chart reviewed. Patient is independent of ADLS, lives with his sister and nephew in a apartment ground floor, in his sister's 3 STH, 0 JEM, 0 DME. 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 PT/OT
evaluation recommending SNF. Referrals sent to [facility] [place]. Plan is for the patient to go to SNF. Patient will need insurance authorization. Plan is for the patient to go to SNF when medically stable. CM to follow
[2025-07-25 12:11] LABS: Iron 30 ug/dl (49-181)
--- NOTE | 2025-07-25 12:12 | W.PN.CARDCBS ---
Today's Communication / Plan
-
Okay for discharge from cardiac standpoint.
With discharge off atenolol and lisinopril
We will apply 1 week monitor at discharge
We will arrange for cardiac follow-up
Will sign off, please call if questions
Impression / Plan
-
Primary Potato Chip Frier: Dr. Ac
Assessment:
Presentation with change in mental status
Hypotension
Sinus bradycardia
Anemia
History of HTN
chronic LBBB
Prostate cancer s/p radical prostatectomy 2023
Possible remote PA in 2004
ECHO 07/22/25: NL LV function no high grade valve dz
Plan:
He seems stable from a cardiac standpoint.
It is conceivable that atenolol and lisinopril causing bradycardia/hypotension is the primary explanation. However, other causes such as arrhythmic could also be considered. It may well be that alcohol is the biggest underlying issue. He states
that his alcohol is only modest and that he is cut down. This is probably true but I think he is still drinking at least moderate amounts of alcohol as per his nephew who is not able to quantitate.
Cognition may still be somewhat different from his baseline, though he was aware of the date. Defer to primary team as to whether neurologic evaluation is warranted.
I strongly encouraged him to abstain from alcohol..
Blood pressure and heart rate are improved. He is off lisinopril and atenolol. I would not restart these at the present time and simply follow his blood pressure.
We will arrange for cardiac follow-up. We will apply a 1 week monitor at the time of discharge.
Will sign off, please call if questions.
Clinical summary: Patient is a 70 yo M with PMH of chronic LBBB, HTN, prostate cancer s/p radical prostatectomy who presented to [facility] ER due to change in mental status. Noted to be weak and lethargic. Was bradycardic and hypotensive in ER resulting
in cardiology consultation. Trop negative. Head CT without acute abnormality. Patient's family sitting at the bedside and reports that following successful prostatectomy patient had an increase in his PSA level leading to the initiation of
radiation therapy. Radiation therapy has been Friday through Friday for the last 2 weeks and the patient has been more fatigued, but then the last 2 days the patient was so tired that he did not eat with his family like usual after coming home from
work. 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 He is usually not done work until 1030 or 11:00 at night, but will still come home and eat a meal with his sister and then wake up in the morning time, but last night he did
not want to eat with family and today he was not up by noon time so the family checked on him and they could not wake him up although he appeared to be breathing on his own. Family called 911 and patient was brought to [facility] ER. Family reports the
patient drinks a 12 pack a day and then also has shots of hard liquor. They do not suspect any illicit drug use. They report patient has lost weight. They said that overall the patient is generally fairly private and so they do not know much
about his medical care aside from the recent radiation therapy. Patient is chronically on atenolol 50 mg daily, but he manages all of his medications on his own. Family thinks that the patient had an PA treated at [facility] perhaps
20 years ago, but they do not have any further details and patient completed Lexiscan nuclear stress test prior to his prostatectomy in September and at that time there is a medium size defect of decreased perfusion in the inferior/inferoseptal
segment that was mildly reversible but then normalized on prone imaging suggesting inferior soft tissue attenuation. The patient has not complained of any chest pain, SOB or palpitations recently.
Progress Note - Potato Chip Frier
Subjective
Date of Service: July 25, 2025:
70-year-old man admitted with change in mental status, unclear regarding true loss of consciousness. Initially bradycardic heart rate 30-40 with hypotension. Now with ectopy off atenolol. He feels weak but wants to go home.
PMH: hypertension, left bundle branch block, prostate cancer status post 2023, possible PA 2004, history of alcohol use order, uses marijuana
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
Current meds: Thiamine, folate, cholecalciferol, as outpatient had been on atenolol 50 mg a day and lisinopril 20 mg daily with Myrbetriq and vitamin E
120/77, pulse 68, respiratory rate 20, intake and output -1.7 L, weight is stable, pleasant, tangential, nephew at bedside, no specific complaints, states he wants to go home though rehab has been recommended, thin, head neck exam unremarkable,
knows the date, lungs clear, regular rate and rhythm, no murmurs, nonfocal, pulses intact
Sodium is 133, potassium is 4, iron studies are pending, hemoglobin is 9.9
Echo: Normal EF, mild aortic stenosis peak gradient 21 mmHg, pulmonary artery systolic pressure is 40
telemetry: Occasional nonsustained VT 3 beats
ECG: Sinus rhythm, PVCs, left bundle branch block
Objective
Labs:
07/24/25 05:36
07/25/25 04:27
Labs
Hgb 9.9 g/dL (13.0-18.0) L 07/24/25 05:36
Hct 29.9 % (39.0-52.0) L 07/24/25 05:36
Plt Count 228 10^3/uL (130-400) 07/24/25 05:36
PT 13.4 Sec (11.4-14.6) 07/21/25 19:38
INR 0.97 07/21/25 19:38
APTT 37.3 Sec (23.4-35.0) H 07/21/25 19:38
Sodium 133 mmol/L (135-145) L 07/25/25 04:27
Potassium 4.0 mmol/L (3.5-5.1) 07/25/25 04:27
BUN 10 mg/dl (9-20) 07/25/25 04:27
Creatinine 0.5 mg/dL (0.7-1.3) L 07/25/25 04:27
Glucose 100 mg/dl (70-99) H 07/25/25 04:27
Vital Signs and I&O:
Vital Signs
Temp Pulse Resp BP Pulse Ox
36.9 C 68 20 120/77 99
07/25/25 11:44 07/25/25 11:44 07/25/25 11:44 07/25/25 04:20 07/25/25 11:44
Vital Signs
Temp Pulse Resp BP Pulse Ox
36.9 C 68 20 120/77 99
07/25/25 11:44 07/25/25 11:44 07/25/25 11:44 07/25/25 04:20 07/25/25 11:44
Intake & Output
07/23/25 07/24/25 07/25/25 07/26/25
07:59 07:59 07:59 07:59
Intake Total 1350.2 / 1605.2 1310 / 1310 1190 / 1190
Output Total 1999 / 1999 1840 / 1840 1750 / 1750 700 / 700
Balance -649.8 / -394.8 -530 / -530 -560 / -560 -700 / -700
Physical Exam
Physical Exam
See above
[2025-07-25 12:24] LABS: Total Iron Binding Capacity 173 ug/dl (261-462)
[2025-07-25 12:47] LABS: Ferritin 156.0 ng/ml (17.9-464.0)
[2025-07-25 13:18] LABS: Folate 7.2 ng/ml (2.76-20)
[2025-07-25] MEDS: SENOKOT-S 1 TABLET PO (17:18)
[2025-07-25] MEDS: LOVENOX 40 MG SC (17:19)
--- NOTE | 2025-07-25 17:25 | PTCARENOTE ---
Addendum entered by Sabrina Mondragon RN 07/25/25 17:55:
patient had large, formed, BM.
Original Note:
patient c/o constipation, Senokot po given as ordered.
[2025-07-26] VITALS (8 sets, daily range): BP systolic 96–141; BP diastolic 63–89; PULSE 72; O2SAT 97
[2025-07-26] MEDS: MELATONIN 5 MG PO ×2 (00:23→22:15)
[2025-07-26 04:15] LABS: Urine Character Slightly Cloudy (Clear)
[2025-07-26 04:26] LABS: Urine Red Blood Cell 0-2 /HPF (0-2); Urine Squamous Cell 0-2 /LPF (Few); Urine White Cell 0-2 /HPF (0-5)
--- NOTE | 2025-07-26 04:53 | PTCARENOTE ---
Pt.'s urine foul smelling and cloudy; output ample (1100 ml overnight). Hospitalist OUTSIDE PROPERTY AGENT Tanvir notified, UA reflex culture sent. Otherwise pt. has no complaints of pain/discomfort. NSR on the monitor, BP stable.
--- NOTE | 2025-07-26 07:41 | W.PN.HOSP.TC ---
Today's Communication/Plan
-
Medically stable for discharge SNF rehab
awaiting insurance auth
Assessment / Plan
Assessment / Plan
Physical Exam
General: No acute distress, appears comfortable at this time
HEENT: Normocephalic, Atraumatic, EOMI, MMM
Respiratory: Clear to Auscultation bilaterally
Cardiac: Normal S1/S2, Regular Rate and Rhythm
GI: Soft, Nontender, Nondistended, Normal Bowel Sounds
Extremities: No Clubbing, Cyanosis, or Edema
Neuro: AOx3 conversant coherent
Psych: Calm
HPI: 70 yo man with hx essential HTN, LBBB, prostate CA, CAD s/p PCI brought to the ER for somnolence. He was found to be hypotensive and bradycardic in the ER. Concern for intoxication.
#Possible Cardiogenic Shock since resolved
#Bradycardia
weaned off pressors Levophed, dopamine, epinephrine
Appreciate supervisor turkey farm and cardiology input
Per cardiology, no need for pacemaker, recommends patient remain off of atenolol and other AV lexi blocking agents
Echo: normal EF, mild , mild TR, +pulm HTN
#NSVT
Compliance Intern on Discharge as per Cardiology
#Altered Mental Status/hypersomnolence
#Cognitive impairment
Head CT neg. Hypersomnolence possibly Toxic Metabolic Encephalopathy due to THC consumption since resolved
PT/OT appreciated SNF rehab
#Essential HTN
Permanently discontinue atenolol
Hold lisinopril, BP consistently within goal w/o
#Hx Prostate CA
Receiving radiation outpatient
DVT prophylaxis�subcu Lovenox
Full code
Medically stable for discharge SNF rehab pending Insurance Authorization
Total time spent to see the patient on the floor, examine the patient, review data and lab results, discuss treatment plan with patient, nursing staff around 40 minutes.
Anticipated Discharge: Within 24 hours
Subjective/Interval History
-
Date of Service: July 26, 2025
No acute distress, sitting up comfortably in bed, overall reports feeling well. Denies new acute issues at this time.
Objective Data
-
Vital Signs:
Vital Signs
Temp Pulse Resp BP Pulse Ox
98.6 F 60 18 135/75 98
07/26/25 07:33 07/26/25 06:00 07/26/25 07:33 07/26/25 03:45 07/26/25 07:33
I&O
07/25/25 07/26/25 07/27/25
06:59 06:59 06:59
Intake Total 1190 / 1190 480 / 480
Output Total 1750 / 1750 3000 / 3000
Balance -560 / -560 -2520 / -2520
[2025-07-26] MEDS: VITAMIN D3 (cholecalciferol) 25 MCG PO (09:00)
[2025-07-26] MEDS: FOLVITE 1 MG PO (09:00)
[2025-07-26] MEDS: VITAMIN B1 100 MG PO (09:00)
--- NOTE | 2025-07-26 10:23 | PTCARENOTE ---
received patient this am in bed sleeping, easily aroused oriented, can carry on conversation. monitor shows NSR, VSS. condom cath # 30 remains intact. patient has a bed at [facility] but needs authorization from insurance.
--- NOTE | 2025-07-26 10:41 | CM ---
Chart reviewed. Patient is independent of ADLS, lives in a ground floor apartment with his sister and nephew in a 3 STH, 0 JEM, 0 DME. PT evaluation recommending SNF. Referral sent to [facility] and accepted. PT/OT to see patient and then CM will get
insurance authorization. Plan is for the patient to go to [facility] pending insurance authorization. CM to follow
--- NOTE | 2025-07-26 11:06 | PN.CDI ---
CDI
- -
CDI:
Physician Documentation Request
Admit Date: 07/21/25 18:12
Dear Doctor Lexx,
Clinical Indicators:
Patient admitted with bradycardia and shock.
H & P, 'Patient was found passed out at home, unable to be woken up.'
Physical Exam: 'lethargic, grimaces when try to open eye lids, mumbles words and does not stay awake'
07/26 PN, 'Altered Mental Status/hypersomnolence #Cognitive impairment Head CT neg. Hypersomnolence likely due to THC consumption, resolved'
Based on the above, could you clarify in the Progress Notes and Discharge Summary which, if any of the following, is the most likely etiology of the confusion/altered mental status.
Toxic Metabolic Encephalopathy, resolved
Cannibis use with intoxication, resolved
Baseline cognitive impairment only
Other, please specify
Use of terms such as suspected, likely, concern for, or probable (associated with a specific diagnosis that is being evaluated, monitored, or treated as if it exists) are acceptable and can be coded in the inpatient setting, when documented at the
time of discharge.
Thank you,
RICHIE Romero RN
CDI Specialist
available via tiger text
Please use your independent medical judgment in providing your response.
--- NOTE | 2025-07-26 11:22 | PN.CDI ---
CDI
- -
CDI:
Physician Documentation Request
Admit Date: 07/21/25 18:12
Dear Doctor Lexx,
Clinical Indicators:
Documentation includes diagnosis of shock.
Patient presented with altered mental status and bradycardia, HR 30's-40's.
Atropine x 1 dose.
Pressor requirements: Levophed 1-2 mcg/min
Epinephrine 2 -6 mcg/kg/min
Please clarify which of the following is the most likely type of shock:
Cardiogenic shock
Shock, other type (please specify)
Other, please specify
Use of terms such as suspected, likely, concern for, or probable (associated with a specific diagnosis that is being evaluated, monitored, or treated as if it exists) are acceptable and can be coded in the inpatient setting, when documented at the
time of discharge.
Thank you,
RICHIE Romero RN
CDI Specialist
available via tiger text
Please use your independent medical judgment in providing your response.
[2025-07-26] MEDS: LOVENOX 40 MG SC (17:31)
[2025-07-26] MEDS: MIRALAX 17 GRAMS PO (20:55)
--- NOTE | 2025-07-26 23:52 | PTCARENOTE ---
assumed care of patient at the change of shift. AAOx3. denies any pain. SR on tele. bp stable. requesting stool softener and sleep aid. Orders placed by Sarah dunbar CIRCUIT BREAKER MECHANIC, see mar. assisted patient to the bathroom- small formed BM. CC intact.
foul smelling, cloudy urine noted. denies any pain. bed alarm for safety. educated patient to inform RN with any changes overnight. call pinedo within reach.
[2025-07-27 03:16] VITALS: BP 144/82
[2025-07-27] MEDS: TYLENOL 650 MG PO (03:16)
[2025-07-27] MEDS: VITAMIN D3 (cholecalciferol) 25 MCG PO (07:34)
[2025-07-27] MEDS: FOLVITE 1 MG PO (07:34)
[2025-07-27] MEDS: VITAMIN B1 100 MG PO (07:34)
--- NOTE | 2025-07-27 07:51 | W.PN.HOSP.TC ---
Today's Communication/Plan
-
Discharge to SNF rehab with 1 week Heart Monitor as per Cardiology
Assessment / Plan
Assessment / Plan
Physical Exam
General: No acute distress, appears comfortable at this time
HEENT: Normocephalic, Atraumatic, EOMI, MMM
Respiratory: Clear to Auscultation bilaterally
Cardiac: Normal S1/S2, Regular Rate and Rhythm
GI: Soft, Nontender, Nondistended, Normal Bowel Sounds
Extremities: No Clubbing, Cyanosis, or Edema
Neuro: AOx3 conversant coherent
Psych: Calm
HPI: 70 yo man with hx essential HTN, LBBB, prostate CA, CAD s/p PCI brought to the ER for somnolence. He was found to be hypotensive and bradycardic in the ER. Concern for intoxication.
#Possible Cardiogenic Shock since resolved
#Bradycardia
weaned off pressors Levophed, dopamine, epinephrine
Appreciate outpatient receptionist and cardiology input
Per cardiology, no need for pacemaker, recommends patient remain off of atenolol and other AV lexi blocking agents
Echo: normal EF, mild , mild TR, +pulm HTN
#NSVT
Senior Marketing Specialist on Discharge as per Cardiology
#Altered Mental Status/hypersomnolence
#Cognitive impairment
Head CT neg. Hypersomnolence possibly Toxic Metabolic Encephalopathy due to THC consumption since resolved
PT/OT appreciated SNF rehab
#Essential HTN
Permanently discontinue atenolol
Hold lisinopril, BP consistently within goal w/o
#Hx Prostate CA
Receiving radiation outpatient
DVT prophylaxis�subcu Lovenox
Full code
Medically stable for discharge SNF rehab with Senior Marketing Specialist as per Cardiology and outpatient follow up recommendations.
Discussed with patient and patient's nephew Solitario 07/26/25 (Nephew called 07/27 no answer received, message left with update and call back number)
Total Time Preparing Discharge ___40____ minutes including examination of the patient, summary of the hospital stay, instructions for continuing care to all relevant caregivers; and preparation of discharge records, prescriptions, and referral
forms if necessary.
Anticipated Discharge: Today
Subjective/Interval History
-
Date of Service: July 27, 2025
Seen and examined at bedside in no acute distress. Overall reports feeling well. Looking forward to Rehab.
Objective Data
-
Vital Signs:
Vital Signs
Temp Pulse Resp BP Pulse Ox
98.4 F 68 18 144/82 97
07/27/25 03:21 07/27/25 03:16 07/27/25 03:21 07/27/25 03:16 07/27/25 03:21
I&O
07/26/25 07/27/25 07/28/25
06:59 06:59 06:59
Intake Total 480 / 480 450 / 450
Output Total 3000 / 3000 2450 / 2450
Balance -2520 / -2520 -1999 /
[2025-07-27 08:08] VITALS: BP 131/75
[2025-07-27 11:24] VITALS: BP 108/70
--- NOTE | 2025-07-27 11:27 | W.DCSUMMARY ---
Discharge Summary
Discharge Data
Date of Admission: 07/21/25
Date of Discharge: 07/27/25
-
Pending Results: No
Discharge Plan
-
Patient Disposition: [facility]/SNF
Discharge Diagnosis/Procedures: cardiogenic Shock since resolved
Severe Bradycardia since resolved
Mild Cognitive Impairment
History Hypertension
Prostate Cancer
Condition: Fair
Diet: Regular
Activity: As tolerated
Driving Restrictions: Not until seen by your Dr
Bathing Restrictions: None
Blood Work: Repeat CBC BMP and Iron studies with primary care provider in 1 week of discharge.
Activity Restrictions/Additional Instructions:
Follow up with primary care provider and oncology in 1 week of discharge. Keep your appointment with Cardiology
Melatonin prescribed as needed for sleep.
Multivitamin prescribed for nutrition support
Atenolol discontinued due to severe bradycardia.
Lisinopril discontinued due to hypotension.
Please take medications as prescribed/recommended and follow up with primary care provider and/or other healthcare provider involved in your care for refills and/or further adjustment to your medication regimen as necessary.
Referrals:
Bibi Patino PA-C [Specified Professional Personl, Cardiology] - 08/29/25 1:20 pm
Referral Note: You have an appointment with Dr. Ac's physician health education assistant, Bibi Patino at the [place] office
UNKNOWN - PT DOES,NOT KNOW [Family Provider]
Additional Discharge Medication Instructions: STOP atenolol and lisinopril!
Prescriptions:
New
melatonin 5 mg Tablet
5 mg PO HSPRN PRN (Reason: Sleep) Qty: 7 0RF
multivitamin Tablet
1 tab PO DAILY Qty: 30 0RF
Continued
garlic 300 mg Capsule
300 mg PO DAILY Qty: 0
vitamin E 268 mg (400 unit) Capsule
268 mg PO DAILY Qty: 0
cholecalciferol (vitamin D3) [Vitamin D3] 25 mcg (1,000 unit) Tablet
25 mcg PO DAILY Qty: 0
mirabegron [Myrbetriq] 25 mg Tablet Extended Release 24 Hr
25 mg PO DAILY
Discontinued
lisinopril 20 mg Tablet
20 mg PO DAILY
atenolol 50 mg Tablet
50 mg PO DAILY
Discharge Orders:
Discharge Patient (As Directed); Ordered 07/27/25
Ordered By: Faye Hallman
Care Plan Goals
Care Plan Goals:
Problem: Readiness for enhanced knowledge related to diagnosis and treatment plan
Goal: Understand your diagnosis and treatment plan needs, including medications if applicable.
Instructions: Know your diagnosis, underlying causes and treatment plan options, including medications if applicable. Consult with your health care team to learn about your diagnosis and treatment plan, including medications if applicable.
Discharge Date and Time
Print Language: NIGERIAN
--- NOTE | 2025-07-27 12:04 | CM ---
I spoke with [facility], Florin, and they will not transport patient for radiation, nor will any SNF. Patient will either need to go home or pause radiation while in SNF. Patient was approved by [facility] to go to [facility], auth#
[id number], 07/26-08/01 NRD 08/02 . Patient to be transported by wheelchair Van with pickup time of 3p.
[2025-07-27 15:34] VITALS: BP 103/63
[2025-07-27] MEDS: FLUZONE HIGH-DOSE 2025-26 0.5 ML IM (16:14)
--- NOTE | 2025-07-27 17:10 | PTCARENOTE ---
Pt received this am with no c/o of pain or sob. SB - SR, rate in the 50's to 70's. Assisted oob to the BR and to the chair for breakfast. Gait steady with 1 assist and the walker. Room air sat 97%. Pt discharged to [facility] rehab via private
transportation by his nephew. Report called to receiving nurse at [facility].
== END 2025-07-27 17:11 | DRG 917 ==
LOC: IVU 18:12
PROVIDERS: Family Medicine; Nurse Practitioner Gerontology; Radiology Diagnostic Radiology; ADMITTING PHYSICIAN Student in an Organized Health Care Education/Training Program; ATTENDING PHYSICIAN Internal Medicine; CONSULT PHYSICIAN Internal Medicine Cardiovascular Disease; EMERGENCY PHYSICIAN Emergency Medicine; OTHER PHYSICIAN Internal Medicine Critical Care Medicine
PROC: 02HV33Z Insertion of Infusion Device into Superior Vena Cava, Percutaneous Approach (ICD-10-PCS; 2025-07-22)
PROC: 3E02340 Introduction of Influenza Vaccine into Muscle, Percutaneous Approach (ICD-10-PCS; 2025-07-27)
DX: T40.711A Poisoning by cannabis, accidental (unintentional), initial encounter (principal); G92.8 Other toxic encephalopathy; R57.0 Cardiogenic shock; J98.11 Atelectasis; I47.29 Other ventricular tachycardia; R53.1 Weakness; R40.0 Somnolence; I44.7 Left bundle-branch block, unspecified; I10 Essential (primary) hypertension; I95.9 Hypotension, unspecified; I49.3 Ventricular premature depolarization; G31.84 Mild cognitive impairment of uncertain or unknown etiology; F10.10 Alcohol abuse, uncomplicated; I25.10 Atherosclerotic heart disease of native coronary artery without angina pectoris; I27.20 Pulmonary hypertension, unspecified; D64.9 Anemia, unspecified; R63.4 Abnormal weight loss; F12.129 Cannabis abuse with intoxication, unspecified; Y92.9 Unspecified place or not applicable; I25.2 Old myocardial infarction; Z68.20 Body mass index [BMI] 20.0-20.9, adult; Z79.899 Other long term (current) drug therapy; Z92.3 Personal history of irradiation; Z90.79 Acquired absence of other genital organ(s); Z85.46 Personal history of malignant neoplasm of prostate; Z23 Encounter for immunization; Z11.52 Encounter for screening for COVID-19; Z98.61 Coronary angioplasty status; Z75.1 Person awaiting admission to adequate facility elsewhere
CPT/HCPCS: 51701; 51798; 70450; 71045; 71046; 80048; 80076; 80143; 80179; 80306; 81003; 81015; 82077; 82140; 82607; 82728; 82746; 82805; 82962; 83036; 83540; 83550; 83605; 83735; 84100; 84145; 84439; 84443; 84484; 85025; 85027; 85610; 85730; 87040; 87070; 87086; 87502; 87811; 90662; 93005; 93306; 96361; 96365; 96366; 96367; 96375; 96376; 97116; 97163; 97166; 97530; 97535; 99291; G0008

== ENCOUNTER → 2025-08-02 10:35 | Outpatient (REF) | payer OTHER, SELFPAY ==
[2025-08-02 11:58] LABS: Hematocrit 32.4 % (39.0-52.0); Hemoglobin 11.2 g/dL (13.0-18.0); Mean Corp Hgb Conc. 34.6 g/dL (33.0-37.0); Mean Corpuscular Volume 90.3 fL (80.0-94.0); Nucleated Red Blood Cells % 0 % (-); Platelet Count 262 10^3/uL (130-400); Red Cell Dist. Width 13.6 % (11.5-14.5)
[2025-08-02 12:01] LABS: Blood Urea Nitrogen 12 mg/dl (9-20); Calcium 8.7 mg/dl (8.4-10.2); Carbon Dioxide 29 mmol/L (22-30); Chloride 101 mmol/L (98-107); Glucose 89 mg/dl (70-99); Iron 43 ug/dl (49-181); Potassium 5.0 mmol/L (3.5-5.1); Sodium 134 mmol/L (135-145); eGFR > 60.00
[2025-08-02 12:10] LABS: Total Iron Binding Capacity 210 ug/dl (261-462)
== END ==
LOC: OLABP 10:35
PROVIDERS: ATTENDING PHYSICIAN Family Medicine
DX: R57.0 Cardiogenic shock (principal); C61 Malignant neoplasm of prostate; I10 Essential (primary) hypertension; D64.9 Anemia, unspecified; G31.84 Mild cognitive impairment of uncertain or unknown etiology; I44.7 Left bundle-branch block, unspecified; R00.1 Bradycardia, unspecified
CPT/HCPCS: 80048; 83540; 83550; 85025